=== PATIENT | female | born 1970 | race Caucasian/White ===

== ENCOUNTER 2022-06-23 09:17 | Day surgery (SDC) | payer MEDICAID, SELFPAY ==
[2022-06-17 09:28] VITALS: BMI 34.4
--- NOTE | 2022-06-22 08:04 | HO.ANESPROP2 ---
Documented by User: Basia Dutta NP 06/22/22 08:04 HPI - Anesthesia Eval Consult details Narrative: 51yo F for Colonoscopy [facility] Past Medical History Medical History Hypertension Hypothyroidism Surgical History Surgical History (Updated 06/17/22 @ 09:27 by Dunia Randall, RN) Hx of appendectomy Social History Social History Patient Tobacco Use Status: Never used Tobacco Use of substances other than those prescribed or required for medical reasons: No Are you DNR?: No Advance Directives: No Advance Directives Information Provided: Yes Meds Allergies Allergy/AdvReac Type Severity Reaction Status Date / Time No Known Allergies Allergy Unverified 07/24/20 14:52 [No Known Allergies*] Home Medications Medication Instructions Recorded Confirmed Last Taken Type hydrochlorothiazide 12.5 mg tablet 12.5 mg PO DAILY 06/17/22 06/17/22 06/23/22 History ibuprofen 800 mg tablet 800 mg PO Q8H PRN Pain 06/17/22 06/17/22 Unknown History levothyroxine 25 mcg tablet 25 mcg PO DAILY 06/17/22 06/17/22 Unknown History Exam Exam Date and Time: June 22, 2022 0804 Height,Weight and Vital Signs: Height 5 ft 1 in Weight 82.554 kg Assessment and Plan Assessment Anesthesia Assessment: Chart Reviewed Documented by User: Jose Manuel Sanchez MD 06/23/22 11:02 [facility] Past Medical History Medical History Hypertension Hypothyroidism Family History Family history of problems with anesthesia: No Surgical History Surgical History (Updated 06/17/22 @ 09:27 by Dunia Randall RN) Hx of appendectomy History of Problems with Anesthesia: No Social History Social History Patient Tobacco Use Status: Never used Tobacco Use of substances other than those prescribed or required for medical reasons: No Are you DNR?: No Advance Directives: No Advance Directives Information Provided: Yes Meds Allergies Allergy/AdvReac Type Severity Reaction Status Date / Time No Known Allergies Allergy Unverified 07/24/20 14:52 [No Known Allergies*] Home Medications Medication Instructions Recorded Confirmed Last Taken Type hydrochlorothiazide 12.5 mg tablet 12.5 mg PO DAILY 06/17/22 06/17/22 06/23/22 History ibuprofen 800 mg tablet 800 mg PO Q8H PRN Pain 06/17/22 06/17/22 Unknown History levothyroxine 25 mcg tablet 25 mcg PO DAILY 06/17/22 06/17/22 Unknown History Exam Airway Mallampati Class: III TM Dist: >3cm Neck ROM: Full Denture: Upper and Lower Heart: rrr Lungs: clear Assessment and Plan Final Anesthetic Review Family History of Problems with Anesthesia: No History of Problems with Anesthesia: No NPO: Yes ASA Class: II Final Preanesthetic Review: No Changes in Pt Med Stat, Meds/Allgs Chart Reviewed, Consent Obtained/Reviewed and Anes Risks/Benef Reviewed Patient Risk: Low Procedure Risk: Low Anesthetic Plan Anesthetic Plan: MAC: Disposition: Standard PACU
[2022-06-23 10:10] VITALS: BP 155/89; PULSE 48; RESP 18; TEMP 36.1; O2SAT 100
--- NOTE | 2022-06-23 11:46 | PM.OP ---
Brief Operative Note Date of Service: 06/23/22 Pre-op diagnosis: Screening Post-op diagnosis: other (Diverticulosis) Procedure: Colonoscopy to the cecum Surgeon: Shubham Murillo Anesthesia: MAC Was an Product Info Specialist used for this Procedure?: No Estimated blood loss (mL): 0 Pathology: none sent Condition: stable Disposition: PACU
[2022-06-23 11:48] VITALS: BP 106/57; PULSE 49; RESP 16; TEMP 36.4; O2SAT 96
[2022-06-23 12:01] VITALS: BP 114/61; PULSE 42; RESP 16; O2SAT 98
[2022-06-23 12:15] VITALS: BP 123/74; PULSE 50; RESP 16; O2SAT 98
[2022-06-23 12:30] VITALS: BP 152/96; PULSE 51; RESP 16; TEMP 36.4; O2SAT 98
--- NOTE | 2022-06-24 00:19 | OP_ITS ---
SURGEON: Shubham Murillo MD INDICATIONS: The patient presents for evaluation of colorectal cancer screening and family history of colon cancer. Full consent obtained from her for this, including risks of bleeding and perforation. PREOPERATIVE DIAGNOSIS: POSTOPERATIVE DIAGNOSIS: PROCEDURE PERFORMED: Colonoscopy to cecum. ESTIMATED BLOOD LOSS: COMPLICATIONS: ANESTHESIA: Monitored anesthesia care. ASSISTANTS: SPECIMENS: PREOPERATIVE DIAGNOSES: Colorectal cancer screening and family history of colon cancer. POSTOPERATIVE DIAGNOSES: Colorectal cancer screening and family history of colon cancer, mild diverticulosis and small internal hemorrhoids. DESCRIPTION OF PROCEDURE: The patient was placed in the left lateral decubitus position. The digital rectal exam revealed no abnormalities. The Olympus video pediatric colonoscope was entered into the rectum and advanced easily to the cecum. Once in the cecum, I did identify normal-appearing cecal pouch with appendiceal orifice and a normal-appearing ileocecal valve. The entire cecum and ileocecal valve appeared normal. The scope was then slowly withdrawn assessing all mucosal surfaces carefully. Preparation was excellent. I did not visualize any sign of polyps, colitis, nor angiodysplasia. There was a mild amount of sigmoid diverticulosis. In the rectum, scope was retroflexed visualizing internal hemorrhoids, but no other pathology. The rectal mucosa appeared normal. The scope was straightened and withdrawn from the patient. She tolerated the procedure well and was returned to the recovery area in stable condition. IMPRESSION: 1. Mild sigmoid diverticulosis. 2. Internal hemorrhoids. PLAN: Given her family history, I would recommend a followup colonoscopy in 5 years for further screening. She will otherwise see me on a p.r.n. basis. MD SRIDEVI Cruz/ILYAL / [phone]
== END 2022-06-23 13:32 | disposition home or self-care (01) ==
PROVIDERS: Visit Provider Internal Medicine
PROC: 0DJD8ZZ Inspection of Lower Intestinal Tract, Via Natural or Artificial Opening Endoscopic (ICD-10-PCS; CPT 45378; principal; 2022-06-23 10:40)
DX: Z12.11 Encounter for screening for malignant neoplasm of colon (principal); Z80.0 Family history of malignant neoplasm of digestive organs; K57.30 Diverticulosis of large intestine without perforation or abscess without bleeding; K64.8 Other hemorrhoids; I10 Essential (primary) hypertension; E03.9 Hypothyroidism, unspecified; Z79.899 Other long term (current) drug therapy
CPT/HCPCS: 45378

== ENCOUNTER 2022-12-31 02:05 | Emergency (ER) | payer MEDICAID, SELFPAY ==
[2022-12-31 03:03] VITALS: BP 160/90; PULSE 72; RESP 16; TEMP 37; O2SAT 98; BMI 33.0
[2022-12-31 05:54] VITALS: BP 165/93; PULSE 54; RESP 20; TEMP 36.6; O2SAT 97
--- NOTE | 2022-12-31 06:39 | ED.EXTPRO ---
HPI - Extremity Problem General Chief complaint: Extremity Injury, Upper Stated complaint: R thumb laceration Time Seen by Provider: 12/31/22 06:39 Source: patient Mode of arrival: ambulatory Limitations: no limitations History of Present Illness HPI Narrative: 52 year old female cut her finger opening a can last night around 2000 hours has been in the ED for 4 hours it is now 0630 the next day. Tetanus is uptodate. She has history of htn, hypothyroidism, It is still bleeding at this time. MD Complaint: extremity pain Related Data Home Medications Medication Instructions Recorded Confirmed hydrochlorothiazide 12.5 mg tablet 12.5 mg PO DAILY 06/17/22 06/17/22 ibuprofen 800 mg tablet 800 mg PO Q8H PRN Pain 06/17/22 06/17/22 levothyroxine 25 mcg tablet 25 mcg PO DAILY 06/17/22 06/17/22 Allergies Allergy/AdvReac Type Severity Reaction Status Date / Time No Known Allergies Allergy Unverified 07/24/20 14:52 [No Known Allergies*] Review of Systems Review of Systems: Review of systems: General: Patient denies any fever chills recent illness or falls Musculoskeletal: Denies back pain or body aches or other injuries HEENT: denies headache, runny nose, ear pain Respiratory: denies shortness of breath, cough Cardiovascular: no chest pain or palpitations : denies dysuria, frequency Abdomen: no nausea vomiting denies abdominal pain Extremities: no swelling, no pain Skin: no diaphoresis Yes all other systems are reviewed and are negative PMFSH Past Medical History Medical History Hypertension Hypothyroidism Surgical History (Updated 06/17/22 @ 09:27 by Dunia Randall RN) Hx of appendectomy Social History Social History Alcohol intake: never Patient Tobacco Use Status: Never used Tobacco Smoked in Last 30 Days: No Use of substances other than those prescribed or required for medical reasons: No Advance Directives: No Advance Directives Information Provided: Yes Patient : No Physical Exam Vital Signs: Vital Signs: Last Vital Signs Temp 97.8 F 12/31/22 05:54 Pulse 54 12/31/22 05:54 Resp 20 12/31/22 05:54 BP 165/93 H 12/31/22 05:54 Pulse Ox 97 12/31/22 05:54 O2 Del Method 12/31/22 05:54 BMI result Body Mass Index 33.0 General: Well-appearing well-nourished in no signs of distress HEENT: Normocephalic atraumatic Neck: No signs of JVD, no masses no tenderness or lymphadenopathy Cardiovascular: Regular rate and rhythm Respiratory: Clear to auscultation bilaterally Abdomen: Soft nontender no masses Extremities: Normal pedal pulses no signs of edema Skin: Laceration to thumb at the base of the thumb palmar aspect Dry warm no rashes Back: No tenderness full ROM Medications Administered Discontinued Medications Generic Name Dose Route Start Last Admin Trade Name Freq PRN Reason Stop Dose Admin Diphtheria/Tetanus/Acell Pertussis 0.5 ml 12/31/22 06:52 12/31/22 07:33 Diphth,Pertus(Acell),Tet Adult 0.5 Ml Syringe IM 12/31/22 06:53 0.5 ml .ONCE ONE Administration Lidocaine HCl 20 ml 12/31/22 06:53 12/31/22 07:38 Lidocaine Hcl 1 % 20 Ml Vial SUBCUT 12/31/22 06:54 Not Given ONCE ONE Medical Decision Making Medical Decision Making MDM Narrative: 3 cm laceration tetanus not up to date. Differential Diagnosis Differential Diagnoses: The differential diagnosis associated with the presentation includes Procedures Laceration Laceration 1: Site: hand Side (If applicable): right Size (cm): 4 Description: linear and clean Depth: simple, single layer Local Anesthetic: lidocaine 1% Amount of anesthesia used (mL): 5 Pre-repair: wound explored and irrigated extensively Skin layer closed with: nylon Size (cm): 4-0 Number of sutures: 6 Technique: simple, interrupted Discharge Plan Discharge Clinical Impression: Laceration of right thumb Patient Disposition: Home, Self-Care Instructions: Laceration (ED), Finger Laceration (ED) Additional Instructions: Please call follow-up with your doctor. You need to have your sutures removed in 5-7 days. If he notices any redness streaking or concerns for infection please return to the emergency department. Prescriptions: No Action ibuprofen 800 mg Tablet 800 mg PO Q8H PRN (Reason: Pain) levothyroxine 25 mcg Tablet 25 mcg PO DAILY hydrochlorothiazide 12.5 mg Tablet 12.5 mg PO DAILY Stand Alone Forms: Work/School Release
--- NOTE | 2022-12-31 06:41 | PC.NURSE ---
Pt A&Ox4, reports throbbing pain to R hand thumb r/t cutting thumb while opening can of green beans. Dressing intact, bleeding controlled, Pt able to move all fingers and feel touch.
[2022-12-31] MEDS: Diphth,Pertus(ACell),Tet Adult 0.5 ML SYRINGE IM (07:33)
--- NOTE | 2022-12-31 08:33 | PC.NURSE ---
Bacitracin not loaded in ED pyxis, instruction provided to pt
== END 2022-12-31 08:32 | disposition home or self-care (01) ==
PROVIDERS: Emergency Provider Student in an Organized Health Care Education/Training Program; PCP Internal Medicine
DX: S61.011A Laceration without foreign body of right thumb without damage to nail, initial encounter (principal); S60.311A Abrasion of right thumb, initial encounter; W45.8XXA Other foreign body or object entering through skin, initial encounter; Y93.9 Activity, unspecified; Y92.9 Unspecified place or not applicable; Y99.9 Unspecified external cause status; Z79.899 Other long term (current) drug therapy; Z23 Encounter for immunization
CPT/HCPCS: 12042; 90471; 90715; 99284

== ENCOUNTER 2023-01-07 15:13 | Emergency (ER) | payer MEDICAID, SELFPAY ==
[2023-01-07 15:30] VITALS: BP 167/108; PULSE 79; RESP 18; TEMP 36.4; O2SAT 99; BMI 33.6
--- NOTE | 2023-01-07 15:31 | ED.GENADULT ---
HPI - General Adult General Chief complaint: Skin/Abscess/Foreign Body Stated complaint: Suture removal Time Seen by Provider: 01/07/23 15:28 Source: patient Mode of arrival: ambulatory Limitations: no limitations History of Present Illness HPI narrative: Patient is a 52 year old assigned female at with no reported medical history presenting to the emergency department today for suture removal. Patient states that on 12/31 she was seen here and had 6 sutures placed in her right thumb. Patient denies any drainage / discharge from the site or any surrounding redness. Patient denies any dizziness, lightheadedness, abdominal pain, nausea, vomiting, fever, chills, blurry vision, double vision, loss of vision, chest pain, difficulty breathing, shortness of breath, back pain, night sweats, pain with urination, increased urinary frequency, increased urinary urgency, blood in her urine or stool, syncope or a near syncopal episode, bowel incontinence, bladder incontinence, bowel retention, bladder retention, or any other complaints at this time. Relieving factors: none Exacerbating factors: none Associated symptoms: denies other symptoms Treatments prior to arrival: none Related Data Home Medications Medication Instructions Recorded Confirmed hydrochlorothiazide 12.5 mg tablet 12.5 mg PO DAILY 06/17/22 06/17/22 ibuprofen 800 mg tablet 800 mg PO Q8H PRN Pain 06/17/22 06/17/22 levothyroxine 25 mcg tablet 25 mcg PO DAILY 06/17/22 06/17/22 Allergies Allergy/AdvReac Type Severity Reaction Status Date / Time No Known Allergies Allergy Unverified 07/24/20 14:52 [No Known Allergies*] Review of Systems Constitutional: Constitutional: Reports no additional constitutional complaints, Denies chills, Denies fever(s) and Denies night sweats Eyes: Eyes: Reports no additional eye complaints, Denies blurry vision, Denies change in vision, Denies diplopia, Denies eye discharge, Denies loss of vision and Denies eye pain ENT: Denies dizziness Cardiovascular: Cardiovascular: Reports no additional cardiovascular complaints, Denies chest pain, Denies lightheadedness, Denies Loss of Consciousness and Denies dyspnea Respiratory: Respiratory: Reports no additional respiratory complaints and Denies dyspnea Gastrointestinal: Gastrointestinal: Reports no additional gastrointestinal complaints, Denies abdominal pain, Denies melena, Denies hematochezia, Denies change in bowel habits and Denies change in stool character Genitourinary: Genitourinary: Denies hematuria, Denies urinary frequency, Denies dysuria, Denies urinary incontinence, Denies urinary hesitancy and Denies urinary urgency Musculoskeletal: Musculoskeletal: Reports no additional musculoskeletal complaints, Denies numbness and Denies tingling Integumentary/Breasts: Comments: 6 nylon sutures in placed in the palmar aspect of the right thumb Neurologic: Denies dizziness, Denies loss of vision, Denies numbness and Denies tingling Psychiatric: Psychiatric: Reports no additional psychiatric complaints Endocrine: Endocrine: Reports no additional endocrine complaints Hematologic/Lymphatic: Hematologic/Lymphatic: Reports no additional hematologic/lymphatic complaints Allergic/Immunologic: Allergic/Immunologic: Reports no additional allergic/immunologic complaints [facility] Past Medical History Attestation statement: The following information was validated with the patient. Source: old records reviewed and nursing notes reviewed Medical History Hypertension Hypothyroidism Surgical History Hx of appendectomy Social History Social History Alcohol intake: never Patient Tobacco Use Status: Never used Tobacco Smoked in Last 30 Days: No Use of substances other than those prescribed or required for medical reasons: No Any prior treatment program specific to substance use: No Advance Directives: No Advance Directives Information Provided: No Patient : No Physical Exam ED Vital Signs: Vital Signs - 24 hr 01/07/23 15:30 Temperature 97.6 F Pulse Rate 79 Respiratory Rate 18 Blood Pressure 167/108 H Pulse Oximetry 99 Oxygen Delivery Method Room Air BMI result Body Mass Index 33.6 Const General: cooperative, no acute distress, alert and awake Nutritional Appearance: well nourished Orientation/consciousness: patient oriented x3 Limitations: no limitations HENMT Head: Yes normal to inspection and Yes atraumatic Ears: hearing grossly normal bilaterally and external ears normal General nose exam: Normal external nose present, no nasal discharge noted and no epistaxis Face and sinus: Yes normal facial exam, No abrasion and No laceration Mouth: Normal oral and palatal mucosa present, no drooling and no muffled voice Eyes General: appearance normal, both eyes and all related structures Periorbital: periorbital findings normal Eyelids: Yes eyelids normal Conjunctivae: conjunctivae normal Pupils: Equal, round and reactive pupils present EOM: EOMs intact bilaterally Neck Neck: Yes normal visual inspection, Yes full ROM and Yes no lymphadenopathy Chest Chest palpation & inspection: normal inspection of the chest Resp Effort & Inspection: normal respiratory effort and able to speak in complete sentences Auscultation: clear to auscultation bilaterally Cardio Rate: regular rate Rhythm: regular rhythm GI Inspection: Yes normal to inspection Skin Other: 6 sutures present in the right palmar thumb, no discharge, no surrounding erythema, wound is well healed Neuro General: patient oriented x3 and moves all extremities Cranial nerves: Yes Equal, round and reactive pupils present Cognition (Neuro): normal cognition Motor exam (neuro): 5/5 motor strength present throughout Sensory Exam: Normal double simultaneous stimulation for sensation Coordination: [id number] test normal Extrem General: Yes normal to inspection, Yes full ROM and Yes capillary refill normal Psych Appearance: grossly normal Mental Status: mental status grossly normal Affect: normal affect Attitude: cooperative Thought process: Normal thought process present Thought content: Normal thought content present Insight: Good insight present (Psych) Procedures Procedure Narrative Procedure Narrative: 6 nylon sutures removed from the right palmar thumb without incident. Medical Decision Making Medical Decision Making MDM Narrative: Patient is a 52 year old assigned female at with no reported medical history presenting to the emergency department today for suture removal. Patient's physical exam showed a well healed wound to the right palmar thumb with [address] Sutures were removed, per procedure note, without incident. I explained my physical exam findings to the patient. I answered all questions asked by the patient. I stressed the importance of the patient following up with her primary care provider. I stressed the importance of the patient returning to the emergency department immediately if she were to develop any dizziness, shortness of breath, difficulty breathing, chest pain, blurry vision, loss of vision, nausea, vomiting, abdominal pain, fever, chills, back pain, or any other complaints. Patient verbalized agreement and understanding with this treatment plan and discharge. Differential Diagnosis Differential Diagnoses: The differential diagnosis associated with the presentation includes suture removal Discharge Plan Discharge Clinical Impression: Encounter for removal of sutures Patient Disposition: Home, Self-Care Instructions: Stitches Removal (ED) Additional Instructions: Follow up with your primary care provider. Return to the emergency department immediately if your symptoms worsen or if you develop any dizziness, shortness of breath, difficulty breathing, chest pain, blurry vision, loss of vision, nausea, vomiting, abdominal pain, fever, chills, back pain, or any other complaints. Prescriptions: No Action ibuprofen 800 mg Tablet 800 mg PO Q8H PRN (Reason: Pain) levothyroxine 25 mcg Tablet 25 mcg PO DAILY hydrochlorothiazide 12.5 mg Tablet 12.5 mg PO DAILY Referrals: Jason Fonseca MD [Primary Care Provider] - Interventions: ED Discharge Assessment Last Done: 01/07/23 15:58 Discharge Date/Time: 01/07/23 15:58 Print Language: [place]ralt[place]
== END 2023-01-07 15:58 | disposition home or self-care (01) ==
LOC: HO.ED 15:55
PROVIDERS: Emergency Provider Emergency Medicine Emergency Medical Services; PCP Internal Medicine
DX: Z48.02 Encounter for removal of sutures (principal)
CPT/HCPCS: 99284

== ENCOUNTER 2023-03-24 10:19 | Outpatient (REF) | payer MEDICAID, SELFPAY ==
--- NOTE | ~2023-03-24 | XR_ITS ---
EXAMINATION: XR KNEE STANDING CLINICAL INFORMATION: Pain COMPARISON: Previous right knee x-ray from 2016 and left knee x-ray from 2006 TECHNIQUE: AP and lateral bilateral standing view and sunrise view of both knees was obtained. FINDINGS: Right: Bone alignment is normal. No fracture or dislocation. There are small osteophytes at the medial femoral tibial and patellofemoral joints. There is subchondral lucency in the patella seen on the lateral view. There is a small to moderate joint effusion. Left: Bone alignment is normal. No fracture or dislocation. Mild arthritis at the medial femoral tibial and patellofemoral joints with small osteophytes. Subchondral lucency in the patella seen on the lateral view. No joint effusion. 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 Subchondral lucency in the patella bilaterally, right greater than left. Right knee joint effusion.
== END 2023-03-24 10:20 | disposition home or self-care (01) ==
LOC: HO.HHCX 10:19
PROVIDERS: Visit Provider Internal Medicine
DX: M25.561 Pain in right knee (principal); M25.562 Pain in left knee
CPT/HCPCS: 73565

== ENCOUNTER 2023-04-26 10:33 | Outpatient (REF) | payer MEDICAID, SELFPAY ==
--- NOTE | ~2023-04-26 | US_ITS ---
EXAMINATION: US THYROID CLINICAL INFORMATION: Screening, hypothyroidism. COMPARISON: None available. TECHNIQUE: Linear transducer grayscale and color Doppler examination with attention to the region of the thyroid. FINDINGS: SIZE: Measurements of the thyroid lobes and nodules are given in sagittal, anteroposterior and transverse dimensions respectively. Right Thyroid Lobe: 3.6 x 1.1 x 1.5 cm, volume 3.1 mL. Parenchyma: The gland echotexture is homogeneous. Thyroid vascularity is normal. Left Thyroid Lobe: 3.0 x 0.7 x 1.1 cm, volume 1.2 mL. Parenchyma: The gland echotexture is homogeneous. Thyroid vascularity is normal. Isthmus: 0.3 cm in maximum AP dimension. No focal thyroid nodule is seen. NODES: No lymphadenopathy is seen in the tissue surrounding the thyroid gland. There is single echogenic structure seen at the lower pole of left lobe, measured 0.6 x 0.3 x 0.5 cm possibly parathyroid nodule. US/US thyroid IMPRESSION: Questionable left parathyroid adenoma. No abnormal findings in the thyroid gland ACR TI-RADS RECOMMENDATION REFERENCE: Ultrasound-guided fine-needle aspiration, followup ultrasound, no further follow up. * TR1 (0 point) and TR2 (2 points): No FNA or follow up. * TR3 (3 points): FNA if more than or equal to 2.5 cm in maximum dimension, followup ultrasound in 1, 3 and 5 years if 1.5 to 2.4 cm in maximum dimension. * TR4 (4-6 points): FNA if more than or equal to 1.5 cm in maximum dimension, followup ultrasound in 1, 2, 3 and 5 years if 1 to 1.4 cm in maximum dimension. * TR5 (more than or equal to 7 points): FNA if more than or equal to 1 cm in maximum dimension, followup ultrasound every year for 5 years if 0.5 to 0.9 cm in maximum dimension. * TR3, TR4 or TR5 nodules that are below the size threshold for followup receive no follow up.
--- NOTE | ~2023-04-26 | MM_ITS ---
EXAMINATION: MM SCREENING DIGITAL BREAST TOMOSYNTHESIS, BILATERAL CLINICAL INFORMATION: Screening. Asymptomatic. The lifetime risk of breast cancer based on the Tyrer-Cuzick Model is 17.5%. COMPARISON: Mammography: July 23, 2015 and studies dating back to June 08, 2011 TECHNIQUE: Digital breast tomosynthesis is performed in both the craniocaudal and mediolateral oblique views along with computer-aided detection (CAD). Synthesized 2D images are generated from the tomosynthesis. FINDINGS: There are scattered areas of fibroglandular density (ACR BI-RADS breast composition Category b). There are no significant masses, abnormal calcifications, or other abnormalities. MM/MM tomosynthesis screening BI IMPRESSION: No significant changes from prior exam. ASSESSMENT: BI-RADS 1: Negative RECOMMENDATION: Routine annual mammography screening. This patient's information was entered into a reminder system with a target due date for their next mammogram.
== END 2023-04-26 10:34 | disposition home or self-care (01) ==
LOC: HO.MAMMO 10:33
PROVIDERS: PCP Internal Medicine; Visit Provider Internal Medicine
DX: Z12.31 Encounter for screening mammogram for malignant neoplasm of breast (principal); E03.9 Hypothyroidism, unspecified
CPT/HCPCS: 76536; 77063; 77067

== ENCOUNTER 2024-10-02 10:11 | Outpatient (REF) | payer MEDICAID, SELFPAY ==
[2024-10-02 12:30] LABS: Alanine Aminotransferase 25 U/L (0-31); Albumin Level 4.2 g/dL (3.5-5.0); Alkaline Phosphatase 60 U/L (39-117); Anion Gap 11 (12-20); Aspartate Amino Transferase 27 U/L (5-31); Bilirubin Total 0.5 mg/dL (0.0-1.0); Blood Urea Nitrogen 15 mg/dL (9-16); Calcium 9.2 mg/dL (8.4-10.2); Carbon Dioxide 28 mmol/L (22-29); Chloride 102 mmol/L (96-108); Cholesterol 161 mg/dL (<200); Estimated Glomerular Filt Rate > 60; Glucose Random 101 mg/dL (60-115); HDL Cholesterol 59 mg/dL (>40); LDL Cholesterol Calculated 93 mg/dL (<100); Potassium 3.3 mmol/L (3.3-5.1); Sodium 138 mmol/L (135-145); Total Protein 7.7 g/dL (6.5-8.0); Triglycerides 48 mg/dL (<150)
[2024-10-02 12:47] LABS: TSH reflex Free T4 2.27 uIU/mL (0.32-4.0); Vitamin D 25-OH Total 22.7 ng/mL (>30)
[2024-10-02 14:13] LABS: Reflex LDLD? No
== END 2024-10-02 10:12 | disposition home or self-care (01) ==
LOC: HO.HHCL 10:11
PROVIDERS: Visit Provider Internal Medicine
DX: I10 Essential (primary) hypertension (principal); E03.9 Hypothyroidism, unspecified; E66.811 Obesity, class 1; E66.09 Other obesity due to excess calories; Z68.34 Body mass index [BMI] 34.0-34.9, adult
CPT/HCPCS: 36415; 80053; 80061; 82306; 84443

== ENCOUNTER 2025-01-28 10:00 | Outpatient (REF) | payer MEDICAID, SELFPAY ==
[2025-01-28 12:36] LABS: HBS Num1 153.97 mIU/mL (0-7.99); HBc Num1 0.18 S/CO (0.00-0.79); HIV AB/AG Nonreactive (Nonreactive); HIV Num 1 0.08 S/CO (0.00-0.99); Hepatitis A Antibody IgM 0.17 Index (0-0.79); Hepatitis B Core Antibody Nonreactive (Nonreactive); Hepatitis B Surface Antigen Negative (Negative); Syphilis Screen Nonreactive (Nonreactive); ~HepC Num1 0.14 S/CO (0.00-0.79); ~Hepatitis A Antibody IgM Nonreactive (Nonreactive); ~Hepatitis B Surface Antibody REACTIVE (Nonreactive); ~Hepatitis C Antibody Nonreactive (Nonreactive)
== END 2025-01-28 10:01 | disposition home or self-care (01) ==
LOC: HO.HHCL 10:00
PROVIDERS: Visit Provider Internal Medicine
DX: Z00.00 Encounter for general adult medical examination without abnormal findings (principal)
CPT/HCPCS: 36415; 86481; 86704; 86706; 86709; 86780; 86803; 87340; 87389

== ENCOUNTER 2025-07-01 14:36 | Outpatient (REF) | payer MEDICAID, SELFPAY ==
--- NOTE | ~2025-07-01 | XR_ITS ---
EXAMINATION: XR KNEE, RIGHT CLINICAL INFORMATION: pain COMPARISON: 03/24/2023. TECHNIQUE: Four views of the right knee. FINDINGS: There is no fracture, dislocation, or suspicious bone lesion. There is normal alignment. Mild to moderate tricompartmental arthritis present with small marginal osteophytic spurs. There is normal patellar alignment. There is no patellar tilt. There is a large suprapatellar joint effusion. There is no soft tissue abnormality. XR/XR knee RT 4V IMPRESSION: 1. Mild to moderate tricompartmental arthritis. 2. Suprapatellar joint effusion. Electronically signed by: Maikol Otero MD 07/01/2025 03:53 PM EDT
--- OUTSIDE RECORDS SUMMARY | 2025-07-01 14:00 | XMS_ITS | Encounter Summary ---
Author Organization [employer] Address [address] [facility] 7t [place] [address] Care Team Providers Care Assistant Passenger Locomotive Engineer Name Role Phone Mary House PharmD Unavailable [phone] Shahana Hernandez MD Primary Care Provider + Encounter Details Date Type Department Care Team (Late st Contact Info) Description 07/01/2025 2:00 PM EDT Office Visit [facility] [address] [place] [address] Yaa Nolan MD [address] [place] [address] Acute pain of right knee Social History Tobacco Use Types Packs/Day Years Used Date Smoking Tobacco: Never Passive Smoke Exposure: Never Smokeless Tobacco: Never Alcohol Use Standard Drinks/Week Comments Never 0 (1 standard drink = 0.6 oz pur e alcohol) Depression Answer Date Recorded Patient Health Questionnaire-9 Score 5 03/22/2023 Housing Stability Answer Date Recorded What is your housing situation today? I have rikkiadriana kraft 10/02/[address] you li ve. Do you have problems with any of the following? None of the above 10/02/2024 Food Insecurity Answer Date Recorded Within the past 12 months, y ou worried that your food would run out before you got money to buy more: Never True 10/02/2024 Within the past 12 months,th e food you bought just didn't last and you didn't have enough money to get more: Never True Transportation Answer Date Recorded In the past 12 months, has l ack of transportation kept you from medical appts, meetings, work or from getting things needed for daily living? No 10/02/2024 Utilities Answer Date Recorded In the past 12 months, has t he electric, gas, oil or water company threatened to shut off services in your home? No 10/02/2024 Depression Answer Date Recorded Patient Health Questionnaire-2 Score 0 10/02/2024 Internet Access Answer Date Recorded Internet Access Q1 Yes 01/10/2025 Internet Access Q2 I do not want or need it 04/2025 Comments No Sex and Gender Information Value Date Recorded Sex Assigned at Female 09/06/2022 10:16 AM EDT Legal Sex Female 10:16 AM EDT Gender Identity Female 09/06/2022 10:16 AM EDT Sexual Orientation Straight 09/06/2022 10 :16 AM EDT documented as of this encounter Last Filed Vital Signs Vital Sign Reading Time Taken Comments Blood Pressure 130/82 07/01/2025 2:12 PM EDT Pulse 64 07/01/2025 2:12 PM EDT Temperature 36.6 C (97.8 F) 07/01/2025 2:12 PM EDT Respiratory Rate 16 07/01/2025 2:12 PM EDT Oxygen Saturation - - Inhaled Oxygen Concentration - - Weight 84.4 kg (186 lb) 07/01/2025 2:12 PM EDT Height 154.9 cm (5' 1 ) 07/01/2025 2:12 PM EDT Body Mass Index 35.14 07/01/2025 2:12 PM EDT documented in this encounter Progress Notes * Yaa Traore MD - 07/01/2025 2:00 PM EDT SUBJECTIVE: Vania Perez is a 54 y.o. year old female who presents for acute visit . 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 Lives on a first floor apartment with a room mate Has 2 adult children who are independent Problem List[1] Essential hypertension Hypothyroidism Preventative health care Class 2 severe obesity due to excess calories with serious comorbidity and body mass index (BMI) of37.0 to 37.9 in adult ([facility] Diverticulosis of colon Chronic pain of both knees Periodontal disease Dental caries Class 1 obesity due to excess calories with serious comorbidity and body mass index (BMI) of 34.0 to 34.9 in adult Acute non intractable tension-type headache Vitamin D deficiency Varicose veins of both lower extremities with inflammation Exercise counseling Acute pain of right knee Family History[2] Review of Systems Constitutional: Negative. HENT: Negative. Respiratory: Negative. Cardiovascular: Negative. Musculoskeletal: Positive for arthralgias and joint swelling. OBJECTIVE: Vitals: 07/01/25 1412 BP: 130/82 BP Location: Right arm Patient Position: Sitting BP Cuff Size: Adult Pulse: 64 Resp: 16 Temp: 97.8 ??F (36.6 ??C) TempSrc: Oral Weight: 186 lb (84.4 kg) Height: 5' 1 (1.549 m) Physical Exam Constitutional: Appearance: Normal appearance. Cardiovascular: Rate and Rhythm: Normal rate and regular rhythm. Pulmonary: Effort: Pulmonary effort is normal. Breath sounds: Normal breath sounds. Abdominal: General: Abdomen is flat. Palpations: Abdomen is soft. Musculoskeletal: General: Tenderness present. Right knee: Swelling present. Decreased range of motion. Tenderness present. Right lower leg: No edema. Left lower leg: No edema. Neurological: Mental Status: She is alert. Follow Up: No follow-ups on file. Medications Ordered Prior to Encounter[3] Problem List Items Addressed This Visit Acute pain of right knee Elevate knee apply ice and rest I will prescribe acetaminophen to be taken as needed I will order an x-ray and contact patient with results Relevant Medications acetaminophen (Tylenol Extra Strength) 500 MG tablet Other Relevant Orders XR Knee 4+ Views Right [1] Patient Active Problem List Diagnosis Essential hypertension Hypothyroidism Preventative health care Class 2 severe obesity due to excess calories with serious comorbidity and body mass index (BMI) of37.0 to 37.9 in adult ([facility]) Diverticulosis of colon Chronic pain of both knees Periodontal disease Dental caries Class 1 obesity due to excess calories with serious comorbidity and body mass index (BMI) of 34.0 to 34.9 in adult Acute non intractable tension-type headache Vitamin D deficiency Varicose veins of both lower extremities with inflammation Exercise counseling Acute pain of right knee [2] No family history on file. [3] Current Outpatient Medications on File Prior to Visit Medication Sig Dispense Refill Blood Pressure Monitoring (Blood Pressure Cuff) [facility] Use daily as prescribed 1 each 0 ergocalciferol (Vitamin D2) 1.25 MG (05701 UT) capsule TAKE 1 CAPSULE BY MOUTH ONE TIME PER WEEK 12capsule 0 hydroCHLOROthiazide (Microzide) 12.5 MG capsule TAKE 1 CAPSULE BY MOUTH EVERY DAY IN THE MORNING 90capsule 1 levothyroxine (Synthroid, Levoxyl) 25 MCG tablet TAKE 1 TABLET BY MOUTH EVERY DAY IN THE MORNING ONEMPTY STOMACH 90 tablet 1 meloxicam (Mobic) 15 MG tablet TAKE 1 TABLET BY MOUTH EVERY MORNING 30 tablet 0 No current facility-administered medications on file prior to visit. documented in this encounter Miscellaneous Notes * Assessment & Plan Note - Yaa Traore MD - 07/01/2025 3:07 PM EDT Associated Problem(s): Acute pain of right knee Elevate knee apply ice and rest I will prescribe acetaminophen to be taken as needed I will order an x-ray and contact patient with results documented in this encounter Plan of Treatment Not on file documented as of this encounter Goals Goal Patient Goal Type Associated Problems Recent Progress Patient-Stated? Author Blood Pressure < 140/90 Blood Pressure 130/82( 2:12 PM EDT) No Mary House, PharmD documented as of this encounter Procedures Procedure Name Priority Date/Time Associated Diagnosis Comments XR KNEE 4+ VIEWS RIGHT Routine 07/01/2025 2:00 PM EDT Acute pain of right knee documented in this encounter Results * XR Knee 4+ Views Right (07/01/2025 2:00 PM EDT) Anatomical Region Laterality Modality Lower Extremities, Knee Right Radiogra phic Imaging 07/01/2025 2:00 PM EDT Narrative 07/01/2025 3:56 PM EDT [address] [address] XRay Report Signed Patient: Vania Perez I MR#: [id number] : 1970 Acct:[id number] Age/Sex: 54 / F ADM Date: 07/01/25 Loc: HO.CX Attending Dr: Yaa Traore MD Ordering Physician: Yaa Nolan MD Date of Service: 07/01/25 Procedure(s): XR knee RT 4V Accession Number(s): [id number] cc: Yaa Nolan MD EXAMINATION: XR KNEE, RIGHT CLINICAL INFORMATION: pain COMPARISON: 03/24/2023. TECHNIQUE: Four views of the right knee. FINDINGS: There is no fracture, dislocation, or suspicious bone lesion. There is normal alignment. Mild to moderate tricompartmental arthritis present with small marginal osteophytic spurs. There is normal patellar alignment. There is no patellar tilt. There is a large suprapatellar joint effusion. There is no soft tissue abnormality. XR/XR knee RT 4V IMPRESSION: 1. Mild to moderate tricompartmental arthritis. 2. Suprapatellar joint effusion. Electronically signed by: Maikol Otero MD 07/01/2025 03:53 PM EDT Dictated By: Maikol Otero MD Signed By: <Electronically signed by Maikol Otero MD in OV> 07/01/25 1553 DD/ 1400 TD/TT: 07/01/25 1405 [employer]: Procedure Note Donotuseinterpreter, Image - 07/01/[address] [address] XRay Report Signed Patient: Vania Perez IMR#: [id number] : 1970Acct:[id number] Age/Sex: 54 / FADM Date: 07/01/25 Loc: HO.CX Attending Dr: Yaa Traore MD Ordering Physician: Yaa Nolan MD Date of Service: 07/01/25 Procedure(s): XR knee RT 4V Accession Number(s): [id number] cc: Yaa Nolan MD EXAMINATION: XR KNEE, RIGHT CLINICAL INFORMATION: pain COMPARISON: 03/24/2023. TECHNIQUE: Four views of the right knee. FINDINGS: There is no fracture, dislocation, or suspicious bone lesion. There is normal alignment. Mild to moderate tricompartmental arthritis present with small marginal osteophytic spurs. There is normal patellar alignment. There is no patellar tilt. There is a large suprapatellar joint effusion. There is no soft tissue abnormality. XR/XR knee RT 4V IMPRESSION: 1. Mild to moderate tricompartmental arthritis. 2. Suprapatellar joint effusion. Electronically signed by: Maikol Otero MD 07/01/2025 03:53 PM EDT RP Workstation: [id number] Dictated By: Maikol Otero MD Signed By: <Electronically signed by Maikol Otero MD in OV> 07/01/25 1553 DD/ 1400 TD/TT: 07/01/25 1405 [employer]: Yaa Traore MD IMG XR PROCEDURES Fin al Result documented in this encounter Visit Diagnoses Diagnosis Acute pain of right knee documented in this encounter Additional Health Concerns Assessment Noted Time PHQ-9 Depression Total Score: 5 03/22/20 23 1:56 PM EDT documented as of this encounter Care Teams Assistant Passenger Locomotive Engineer Relationship Specialty Start Date End Date Shahana Hernandez MD [address] [place] [address] PCP - General Internal Medicine 10/02/24 Mary House PharmD [address] [place] [address] Pharmacist Internal Medicine 04/11/23 documented as of this encounter
--- OUTSIDE RECORDS SUMMARY | 2025-07-01 16:19 | XMS_ITS | Encounter Summary ---
Author Organization [employer] Address [address] [facility] 7t [place] [address] Care Team Providers Care Oracle Bpm Consultant Name Role Phone Mary House PharmD Unavailable [phone] Shahana Hernandez MD Primary Care Provider + Reason for Visit * Reason Onset Date Comments Med Refill 05/05/2025 Encounter Details Date Type Department Care Team (Late st Contact Info) Description 05/05/2025 Refill [facility] [address] [place] [address] Jason Cross MD [address] [place] [address] Essential (primary) hypertension; Acquired hypothyroidism Social History Tobacco Use Types Packs/Day Years Used Date Smoking Tobacco: Never Passive Smoke Exposure: Never Smokeless Tobacco: Never Alcohol Use Standard Drinks/Week Comments Never 0 (1 standard drink = 0.6 oz pur e alcohol) Depression Answer Date Recorded Patient Health Questionnaire-9 Score 5 03/22/2023 Housing Stability Answer Date Recorded What is your housing situation today? I have rikki kraft 10/02/[address] you [...] AM EDT documented as of this encounter Plan of Treatment Not on file documented as of this encounter Goals Goal Patient Goal Type Associated Problems Recent Progress Patient-Stated? Author Blood Pressure < 140/90 Blood Pressure 130/82( 025 2:12 PM EDT) No Mary House PharmD documented as of this encounter Visit Diagnoses Diagnosis Essential (primary) hypertension Unspecified essential hypertension Acquired hypothyroidism Unspecified hypothyroidism documented in this encounter Additional Health Concerns Assessment Noted Time PHQ-9 Depression Total Score: 5 03/22/20 23 1:56 PM EDT documented as of this encounter Care Teams Oracle Bpm Consultant Relationship Specialty Start Date End Date Shahana Hernandez MD [address] [place] [address] PCP - General Internal Medicine 10/02/24 Mary House PharmD [address] [place], [place] [phone] Pharmacist Internal Medicine 04/11/23 documented as of this encounter
--- OUTSIDE RECORDS SUMMARY | 2025-07-01 16:19 | XMS_ITS | Encounter Summary ---
Author Organization [employer] Address [address] [facility] 7t [place] [address] Care Team Providers Care Beater And Pulper Feeder Name Role Phone Mary House PharmD Unavailable [phone] Shahana Hernandez MD Primary Care Provider + Reason for Visit * Reason Comments Med Refill Encounter Details Date Type Department Care Team ([facility] st Contact Info) Description 07/01/2025 Refill [facility] [address] [place] [address] Shahana Hernandez MD [address] [place] [address] Social History Tobacco Use Types Packs/Day Years [...] 130/82( 025 2:12 PM EDT) No Mary House, PharmD documented as of this encounter Visit Diagnoses Not on filedocumented in this encounter Additional Health Concerns Assessment Noted Time PHQ-9 Depression Total Score: 5 03/22/20 23 1:56 PM EDT documented as of this encounter Care Teams Beater And Pulper Feeder Relationship Specialty Start Date End Date Shahana Hernandez MD [address] [place] [address] PCP - General Internal Medicine 10/02/24 Mary House, PharmD [address] [place] [address] Pharmacist Internal Medicine 04/11/23 documented as of this encounter
--- OUTSIDE RECORDS SUMMARY | 2025-07-01 16:19 | XMS_ITS | Encounter Summary ---
Author Organization [employer] Address [address] [facility] 7t [place] [address] Care Team Providers Care Indirect Sales Exec Name Role Phone Jason Cross MD Primary Care Provide r Mary House PharmD Unavailable [phone] Shahana Hernandez MD Primary Care Provider + Encounter Details Date Type Department Care Team (Late st Contact Info) Description 02/07/[address] [facility] [address] [place] [address] Sima Spencer LPN Social History Tobacco Use Types Packs/Day Years Used Date Smoking Tobacco: Never Assessed Comments Unknown Sex and Gender Information Value Date Recorded Sex Assigned at Female 09/06/2022 10:16 AM EDT Legal Sex Female 10:16 AM EDT Gender Identity Female 09/06/2022 10:16 AM EDT Sexual Orientation Straight 09/06/2022 10 :16 AM EDT documented as of this encounter Plan of Treatment Not on file documented as of this encounter Visit Diagnoses Not on filedocumented in this encounter Care Teams Indirect Sales Exec Relationship Specialty Start Date End Date Jason Cross MD [address] [place], [place] [phone] PCP - General Internal Medicine 07/28/21 10/01/24 Shahana Hernandez MD [address] [place], [place] [address] PCP - General Internal Medicine 10/02/24 Mary House, MicheleD [address] [place] [address] Pharmacist Internal Medicine 04/11/23 documented as of this encounter
--- OUTSIDE RECORDS SUMMARY | 2025-07-01 16:19 | XMS_ITS | Patient Health Record ---
Author Organization [facility] Address [address] [place] [address] Care Team Providers Care Hand Grinder Name Role Phone Dung Acevedo MD, Jason Primary Care Provide r Shubham Santiago Unavailable [phone] Allergies No Known Allergies Reason For Referral No Information Medications Medication SIG (Take, Route, Frequency, Duration) Notes Start Date End Date Status Ibuprofen 800 MG TAKE 1 TABLET BY MOUTH THREE TIMES DAILY WITH FOOD Oral for 5 Active Chlorhexidine Gluconate 0.12 % RINSE FOR 30 SECONDS WITH A HALF OUNCE (15ml) TWICE DAILY, SPIT OUT -- DO NOT SWALLOW.. USE AFTER MEALS Mouth/Throat for 16 Active Levothyroxine Sodium 25 MCG TAKE 1 TABLE T BY MOUTH EVERY MORNING ON AN EMPTY STOMACH Oral for 30 Active hydroCHLOROthiazide 12.5 MG TAKE 1 TABLE T BY MOUTH EVERY DAY Oral for 30 Active Dulcolax (colon prep) 5 MG take at 3:00 p.m and 7:00p.m. Orally two tablets twice a day for one day for 1 day 04/30/2022 Active MiraLax (colon prep) 17 GM/SCOOP 1 238Gm bottle mixed with Gatorade or Crystal Light Orally begin at 5:00 p.m. the day before the procedure for 1 day 04/30/2022 Active Immunizations Vaccine Route Administration Date Status Comme nts Influenza Unknown 01/21/2022 Administered Social History Tobacco Use: Social History Observation Description Date Details (start date - stop date) Never Smoker NA - NA Tobacco Use/Smoking Question Answer Notes Patient is a nonsmoker Alcohol Screen Question Answer Notes Did you have a drink containing alcohol in the p ast year? No Points 0 Interpretation Negative Section Notes: Nonsmoker; no sig alcohol Problems Problem Type SNOMED Code ICD Code Onset Dates Problem Status W/U Status Risk Notes Problem Encounter for screening for malignant neoplasm of colon (Z12.11) Active confirmed Problem Pre-procedure evaluation check (381792321) Encounter for other preprocedural examination (Z01.818) Active confirmed Problem Family History of Cancer of Colon (Situation) (685285838) Family history of colon cancer (Z80.0) Active confirmed Problem Diverticulosis of colon (963320539) Diverticulosis of colon (K57.30) Active confirmed Plan Of Treatment Future Test Test Name Order Date COLONOSCOPY 04/30/2022 Insurance Providers Payer Name Payer Address Payer Phone Subscriber Number Group Number Insured Name Patient Relationship to Insured Coverage Start Date Coverage End Date MEDICA[employer] OF [employer] [address] [place] [phone] [id number] ARELI HILARIO Self - patient is the insured Medical (General) History Medical History History ICD Code Hypertension Hypothyroidism Denies MS,DM,CVA,Lung disease,renal dise ase Surgical History Surgery Date(Month/Year) Appendectomy 1996
--- OUTSIDE RECORDS SUMMARY | 2025-07-01 16:19 | XMS_ITS | Encounter Summary ---
Author Organization [employer] Address [address] [facility] [address] [place] [address] Care Team Providers Care Project Control Analyst Name Role Phone Mary House PharmD Unavailable [phone] Shahana Hernandez MD Primary Care Provider + Encounter Details Date Type Department Care Team (Latest Contact Info) Description 07/01/2025 Travel Social History Tobacco Use Types Packs/Day Years [...] 025 2:12 PM EDT) No Mary House, Sultana documented as of this encounter Visit Diagnoses Not on filedocumented in this encounter Additional Health Concerns Assessment Noted Time PHQ-9 Depression Total Score: 5 03/22/20 23 1:56 PM EDT documented as of this encounter Care Teams Project Control Analyst Relationship Specialty Start Date End Date Shahana Hernandez MD [address] [place] [address] PCP - General Internal Medicine 10/02/24 Mary House PharmD [address] [place] [address] Pharmacist Internal Medicine 04/11/23 documented as of this encounter
--- OUTSIDE RECORDS SUMMARY | 2025-07-01 16:19 | XMS_ITS | Encounter Summary ---
Author Organization [employer] Address [address] [facility] [address]t [place] [address] Care Team Providers Care Pure Pak Machine Operator Name Role Phone Mary House PharmD Unavailable [phone] Shahana Hernandez MD Primary Care Provider + Reason for Visit * Reason Onset Date Comments Nurse Triage 07/01/2025 Encounter Details Date Type Department Care Team ([facility] st Contact Info) Description 07/01/[address] [facility]INE [address] [place] [address] Shahana Hernandez MD [address] [place] [address] Nurse Triage Social History Tobacco Use Types Packs/Day Years [...] AM EDT documented as of this encounter Miscellaneous Notes * Telephone Encounter - Belinda Burris RN - 07/01/2025 10:55 AM EDT Triage call Pt reports right knee with pain and swelling. Pt reports area is warm to touch. Pt is able to ambulate but, unable to bend the knee. Pt has had chronic pain in both knees. Pt is taking meloxicam each morning. Pt is advised to try ice/heat, tylenol/motrin for pain. Pt agrees with disposition. Pt is advised to come to [facility] today to be seen by provider. Pt is at work at time of call. Insurance is verified as active. Protocol Used: Knee Swelling (Adult) Protocol-Based Disposition: See in Office or Video Visit Today or Tomorrow Video visit not offered Positive Triage Question: * Patient wants to be seen * All higher-acuity triage questions were negative Care Advice Discussed: * Cold Pack for Knee Swelling * Pain Medicines * Reasons To Call Back - Severe pain lasts over 2 hours after pain medicine - Fever occurs - Looks infected (spreading redness, red streak) - You become worse * Telephone Encounter - Kaitlynn Sylvester - 07/01/2025 9:54 AM EDT Symptom: Leg Swelling - Not From Injury Outcome: Schedule an urgent appointment (within 1 hour) or talk to a nurse or provider soon Reason: Leg swelling on one side only The caller accepted this outcome. Contact pt at [phone] documented in this encounter Plan of Treatment [...] documented as of this encounter Care Teams Pure Pak Machine Operator Relationship Specialty Start Date End Date Shahana Hernandez MD [address] [place] [address] PCP - General Internal Medicine 10/02/24 Mary House, PharmD [address] [place] [address] Pharmacist Internal Medicine 04/11/23 documented as of this encounter
--- OUTSIDE RECORDS SUMMARY | 2025-07-01 16:19 | XMS_ITS | Clinical Summary ---
Author Organization [employer] Address [address] [facility] [address] [place] [address] Care Team Providers Care Warehouse Order Filler Name Role Phone Mary House PharmD Unavailable [phone] Shahana Hernandez MD Primary Care Provider + Allergies No known active allergies Medications levothyroxine (Synthroid, Levoxyl) 25 MCG tabletIndications: Acquired hypothyroidism TAKE 1 TABLET BY MOUTH EVERY DAY IN THE MORNING ON EMPTY STOMACH 90 tablet 1 5 Active Blood Pressure Monitoring (Blood Pressure Cuff) misc Use daily as prescribed 1 each 5 Active ergocalciferol (Vitamin D2) 1.25 MG (23590 UT) capsule TAKE 1 CAPSULE BY MOUTH ONE TIME PER WEEK 12 capsule 5 Active meloxicam (Mobic) 15 MG tabletIndications: Chronic pain of both knees TAKE 1 TABLET BY MOUTH EVERY MORNING 30 tablet 5 Active hydroCHLOROthiazid e (Microzide) 12.5 MG capsuleIndications :Essential (primary) hypertension TAKE 1 CAPSULE BY MOUTH EVERY DAY IN THE MORNING 90 capsule 1 5 Active acetaminophen (Tylenol Extra Strength) 500 MG tabletIndications: Acute pain of right knee Take 2 tablets (1,000 mg) by mouth every 8 (eight) hours if needed for moderate pain for up to 10 days. 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 Recommended to decrease soda and sugary beverage consumption, increase protein intake with meals (at least 1 portion of protein with each meal) to assist with satiety, increase dietary fiber Recommended at least 150 min/week of moderate intensity exercise. Wants a referral to dietitian, she will discuss with PCP regarding need or not for medications Assessment & Plan (10/02/2024 12:55 PM EST): Discussed re weight reduction options including exercise, life style modifications, diet and referral to invoicing specialist. Recommended to decrease soda and sugary beverage consumption, increase protein intake with meals (at least 1 portion of protein with each meal) to assist with satiety, increase dietary fiber Recommended at least 150 min/week of moderate intensity exercise. Acute non intractable tension-type headache 09/08 Assessment & Plan (10/02/2024 12:57 PM EST): Take Excedrin Migraine prn headache x 2-3 days, re consult prn. Periodontal disease 08/08/2023 Dental caries 08/08/2023 Preventative health care 03/22/2023 Assessment & Plan (01/28/2025 10:14 AM EDT): Discussed with patient re increase fresh fruit and vegetable intake. Counseled re moderate exercise as tolerated, up to 20min/d Patient feels safe at home. PAP smear is up-to-date, next 1 due 7 Mammogram is up-to-date, next due March 2025, advised to schedule appointment as soon as she receives the reminder letter. Eye exam is up-to-date, next December 2026 CRC screen is up today, next 2031. Normal result. However recall is for 2026, will call GI to verify recall date Lipids/FBS up today, follow-up with PCP on September 2025 Vaccinations are all up-to-date. Dental visit up-to-date, sees dentist as needed as she has complete dentures Assessment & Plan (04/11/2023 3:34 PM EDT): - Shingrix #1 administered today. Assessment & Plan (03/22/2023 1:55 PM EDT): Mammogram: Ordered Pap: 02/15/2022 Colonoscopy: 06/23/2022 Diverticulosis, Hemorrhoids [address] ho due to Fam Hx Class 2 severe obesity due t o excess calories with serious comorbidity and body mass index (BMI) of 37.0 to 37.9 in adult 03/22/2023 Assessment & Plan (03/22/2023 1:40 PM EDT): Patient has been counseled and educated about diet and exercise. Personal goal of weight loss discussedPatient has comorbidity of: HTN Diverticulosis of colon 03/22/2023 Chronic pain of both knees 03/22/2023 Assessment & Plan (10/02/2024 12:56 PM EST): Consistent with OA, XR on 2022 reviewed. Take Meloxicam x 1-2 weeks, and Tylenol prn only. Refer to PT. Assessment & Plan (03/22/2023 1:46 PM EDT): Pt with c/o bilateral knee pain for months. On exam no swelling, No redness, Plan: Plain films both knees, NSAIDS Essential hypertension 03/18/2023 Overview (04/11/2023): Dx with HTN a few months ago and started on hydrochlorothiazide in March. BP readings at home are consistently less than 140/90 Current therapy: - hydrochlorothiazide 12.5mg daily Assessment & Plan (10/02/2024 12:54 PM EST): Controlled. Compliant w/meds Continue Hydrochlorothiazide. Counseled re low salt diet/increase moderate physical activity. Check home BP BIW and prn CP/GODWIN/OFUNTAIN Non smoking patient. Fu in 4-6 months. Assessment & Plan (04/11/2023 3:34 PM EDT): - At goal of less than 140/90 per JNC8 guidelines - BMP is WNL; f/u in 6 months. Assessment & Plan (03/22/2023 1:55 PM EDT): Patient with Hypertension Most recent electrolytes, Bun and Creatinine done on: 01/19/2022 were within normal limits. She is on Hctz 12.5 mg po daily BP controlled Plan: Continue with current regimen patient advised to adhere to a low sodium diet, encouraged about medication compliance, counseled about weight loss. Hypothyroidism 03/18/2023 Assessment & Plan (10/02/2024 12:55 PM EST): On levothyroxine 25 mcg, check TSH and will call back prn to adjust medications. Assessment & Plan (03/22/2023 1:55 PM EDT): TSH elevated, Free T4 normal Previously I recommended a Thyroid U/S, and started her onLevothyroxine 25 mcg po daily Pt was also referred to Endocrinology . She did not go Plan: Repeat TFTs, Order Thyroid US F.u 3 months Encounters Date Type Department Care Team Description 07/01/2025 2:00 PM EDT Office Visit [facility] [address] [place] [address] Yaa Nolan MD Acute pain of right knee 07/01/2025 Travel 07/01/2025 Telephone [facility] [address] [place] [address] Shahana Hernandez MD Nurse Triage 07/01/2025 Refill [facility] [address] [place] [address] Shahana Hernandez MD 06/18/2025 3:15 PM EDT Office Visit [facility] [address] [place] [address] Maria Antonia Bhakta, OD Other disorders of optic nerve, not elsewhere classified, bilateral (Primary Dx) 06/18/2025 Travel 06/11/2025 Travel 05/21/2025 Refill [facility] [address] [place] [address] Shahana Hernandez MD Essential (primary) hypertension 05/05/2025 Refill [facility] [address] [place] [address] Shahana Hernandez MD Chronic pain of both knees 05/05/2025 Refill [facility] [address] [place] [address] Jason Cross MD Essential (primary) hypertension; Acquired hypothyroidism 04/30/2025 Telephone [facility] [address] [place] [address] Shahana Hernandez MD No Show 04/30/2025 Telephone [facility] [address] [place] [address] Shahana Hernandez MD Appointment Request 04/29/2025 Telephone [facility] [address] [place] [address] Shahana Hernandez MD Chart Prep 04/19/2025 Patient Outreach [facility] [address] [place] [address] Shahana Hernandez MD Pre-visit Planning (SDOH screening completed on 01/10/2025) 04/12/2025 Refill [facility] [address] [place] [address] Shahana Hernandez MD 04/12/2025 Refill [facility] [address] [place] [address] Jason Cross MD Essential (primary) hypertension; Acquired hypothyroidism 04/08/2025 Refill [facility] [address] [place] [address] Shahana Hernandez MD 04/05/2025 9:15 AM EDT Office Visit [facility] [address] [place] [address] Maria Antonia Bhakta, BEATRIZ Myopia, bilateral (Primary Dx) 04/05/2025 Travel 04/03/2025 Travel from Last 3 Months Immunizations Immunization Administration Dates Next Due HepB-CpG 06/27/2024,03/26/2024 Influenza Injectable Quadriv alant Preservative Free IIV4 MDCK 09/01/2023 Influenza injectable quadriv alent preservative free 09/20/2022,06/12/2021,2017,2015 Influenza, IIV3, injectable 01/21/2022 Influenza, Injectable, MDCK, preservative free 06/27/2024 Influenza, seasonal, injecta ble, preservative free 09/05/2018 Pfizer Covid-19 Vaccine 12+ 10/02/2024 Tdap 12/31/2022,10/06/2017 Zoster, Recombinant 06/20/2023,04/11/2023 Social History Tobacco Use Types Packs/Day Years Used Date Smoking Tobacco: Never Passive Smoke Exposure: Never Smokeless Tobacco: Never Tobacco Cessation:Counseling Given: Not Answered Alcohol Use Standard Drinks/Week Comments Never 0 [...] Orientation Straight 09/06/2022 10 :16 AM EDT Last Filed Vital Signs Vital Sign Reading Time Taken Comments Blood Pressure 130/82 07/01/2025 2:12 PM EDT Pulse 64 07/01/2025 2:12 PM EDT Temperature 36.6 C (97.8 F) 07/01/2025 2:12 PM EDT Respiratory Rate 16 07/01/2025 2:12 PM EDT Oxygen Saturation 99% 01/28/2025 9:21 AM EDT Inhaled Oxygen Concentration - - Weight 84.4 kg (186 lb) 07/01/2025 2:12 PM EDT Height 154.9 cm (5' 1 ) 07/01/2025 2:12 PM EDT Body Mass Index 35.14 07/01/2025 2:12 PM EDT Plan of Treatment Health Maintenance Due Date Last Done Comments CT Colonography 1971 Dental Prophylaxis 1971 FIT DNA/Cologuard 1971 FIT 1971 FOBT 1970 Sigmoidoscopy 1970 Dental X-Ray: Bitewings 08/02/2020 08/01/2019 Dental X-Ray: Full Mouth 08/02/2022 08/01/2019 Dental Oral Exam 01/14/2024 07/15/2023, 08/01/2019 Mammogram 04/26/2025 04/26/2023 Influenza Vaccine (#1) 2025 , 09/01/2023, 09/20/2022, Additional history exists Depression Screening 10/02/2025 10/02/2024, 03/22/20 SDOH Screening 01/10/2026 01/10/2025 Disability Screening 01/21/2026 01/21/2025 Alcohol/Substance Use Screening 01/28/2026 01/28/2025 Tobacco Screening 01/28/2026 01/28/2025 Cervical Cancer Screening 02/15/2027 HPV/Cotest 02/15/2027 02/15/2022 Pap Smear 02/15/2027 02/15/2022 Colonoscopy 06/23/2027 06/23/2022 Colorectal Cancer Screening 06/23/2027 Lipid Panel 10/02/2029 10/02/2024, 01/19/2022 DTaP/Tdap/Td Vaccines (3 - Td or Tdap) 12/31/2032 12/31/2022, 10/06/2017 Zoster Vaccines Completed 06/20/2023, 04/11/2023 Hepatitis B Vaccines Completed 06/27/2024, 03/26/20 COVID-19 Vaccine Completed 10/02/2024, , 02/23/2022, Additional history exists Pneumococcal Vaccine: 50+ Years Completed 12/14/2024 HIV Screening Completed 01/28/2025, 03/24/2023 Hepatitis C Screening Completed 01/28/2025, 023 RSV Patients and Patients Aged 60 years or older Completed 05/23/2025 HIB Vaccines Aged Out No longer eligi ble based on patient's age to complete this topic HPV Vaccines Aged Out No longer eligi ble based on patient's age to complete this topic Hepatitis A Vaccines Aged Out No long er eligible based on patient's age to complete this topic IPV Vaccines Aged Out No longer eligi ble based on patient's age to complete this topic Meningococcal B Vaccine Aged Out No l onger eligible based on patient's age to complete this topic Meningococcal Vaccine Aged Out No zafar michael eligible based on patient's age to complete this topic RSV under 20 months Aged Out No longe r eligible based on patient's age to complete this topic Rotavirus Vaccines Aged Out No longer eligible based on patient's age to complete this topic Goals Goal Patient Goal Type Associated Problems Recent Progress Patient-Stated? Author Blood Pressure < 140/90 Blood Pressure 130/82( 025 2:12 PM EDT) No Mary House PharmD Procedures Procedure Name Priority Date/Time Associated Diagnosis Comments XR KNEE 4+ VIEWS RIGHT Routine 07/01/2025 2:00 PM EDT Acute pain of right knee AUTOMATED VISUAL FIELD, EXTENDED - OU - BOTH EYES Routine 06/18/2025 4:00 PM EDT Other disorders of optic nerve, not elsewhere classified, bilateral HEPATITIS PANEL, GENERAL Routine 01/28/2025 10:05 AM EDT Preventative health care HIV 1/2 ANTIGEN/ANTIBODY, FOURTH GENERATION W/RFL Routine 01/28/2025 10:05 AM EDT Preventative health care LIPID PANEL WITH REFLEX TO DIRECT LDL Routine 10/02/2024 10:12 AM EST Essential hypertension PERIODIC ORAL EVALUATION - ESTABLISHED PATIENT Routine 07/15/2023 10:00 AM EDT BI MAMMOGRAM SCREENING TOMOSYNTHESIS BILATERAL Routine 04/26/2023 10:55 AM EDT HM COLONOSCOPY Routine 06/23/2022 1:06 PM EDT THINPREP IMAGING PAP AND HPV MRNA E6/E7 WITH REFLEX TO HPV 16,18/45 Routine 02/15/2022 11:07 AM EDT INTRAORAL - COMPLETE SERIES OF RADIOGRAPHIC IMAGES Routine 08/01/2019 12:00 AM EDT from Last 3 Months or Most Recently Relevant to Health Maintenance Results * XR Knee 4+ Views Right (07/01/2025 2:00 PM EDT) Anatomical Region Laterality Modality Lower Extremities, Knee Right [facility] Imaging 07/01/2025 2:00 PM EDT Narrative 07/01/2025 3:56 PM EDT [address] [address] XRay Report Signed Patient: Vania Perez I MR#: [id number] : 1970 Acct:[id number] Age/Sex: 54 / F ADM Date: 07/01/25 Loc: HO.CX Attending Dr: Yaa Traore MD Ordering Physician: Yaa Nolan MD Date of Service: 07/01/25 Procedure(s): XR knee RT 4V Accession Number(s): [id number] cc: Yaa Nolan MD EXAMINATION: XR KNEE, [...] 07/01/25 1553 DD/ 1400 TD/TT: 07/01/25 1405 Networking Specialist: Procedure Note Donotuseinterpreter, Image - 07/01/2025 [place] [address] XRay Report Signed Patient: Vania Perez IMR#: [id number] : 1970Acct:[id number] Age/Sex: 54 / FADM Date: 07/01/25 [facility]: Yaa Traore MD Ordering Physician: Yaa Nolan MD Date of Service: 07/01/25 Procedure(s): XR knee RT 4V Accession Number(s): [id number] cc: Yaa Nolan MD EXAMINATION: XR KNEE, [...] Otero MD 07/01/2025 03:53 PM EDT RP Dictated By: Maikol Otero MD Signed By: <Electronically signed by Maikol Otero MD in OV> 07/01/25 1553 DD/ 1400 TD/TT: 07/01/25 1405 Networking Specialist: us Yaa Traore MD IMG XR PROCEDURES Fin al Result * Automated Visual Field, Extended - OU - Both Eyes (06/18/2025 4:00 PM EDT) Maria Antonia Mosher, OD - 06/18/2025 4:00 PM EDT VISUAL FIELD INTERPRETATION Right eye (OD) Reliability: reliable (0/7 FP, 1/7 FN) Findings: MD 9.1, PSD 3.7, enlarged blindspot with superior arcuate-like pattern. Consistent with thinned GCL inferior nasal. Baseline Left eye (OS) Reliability: reliable (0/7 FP, 0/7 FN) Findings: MD 1.6, PSD 2.4, few cluster of defects superior periphery. No structural correlation on GCL OCT. 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 Baseline visual field (VF) testing done. RTC in for annual CEE. us Maria Antonia Bhakta OD OPHTH VISUAL FIELD Final Result * Hepatitis Panel, General (01/28/2025 10:05 AM EDT) Hepatitis A IgM Nonreactive Nonreactive [facility] Comment:IgM antibodies to GODWIN V not detected; does not exclude earlyacute or recovered HAV infection. ~Hepatitis B Surface Antibody REACTIVE Nonreactive [facility] Comment:REACTIVE: > 11.99 mI U/mL Hepatitis B Core Antibody Nonreactive Nonreactive [facility] Hepatitis C Antibody Nonreactive Nonreactive [facility] Comment:Antibodies to HCV no t detected; does not exclude early acuteHCV infection. Hepatitis B Surface Ag Negative Negative [facility] Blood 01/28/2025 10:0 5 AM EDT 01/28/2025 11:36 AM EDT Shahana Hernandez MD LAB BLOOD ORDERABLES Fin al Result Performing Organization Address [facility]/ZIP Co de Phone Number [facility] [address] [place] [address] [phone] * HIV-1/2 Antigen and Antibodies, Fourth Generation, with Reflexes (01/28/2025 10:05 AM EDT) Pathologist [facility] HIV AB/AG Nonreactive Nonreactive [facility] Comment:HIV-1 p24 Ag and/or HIV-1/HIV-2 Ab not detected.A test result that is nonreactive does not exclude thepossibility of exposure to or infection with HIV-1 and/orHIV-2. Nonreactive results in this assay for individualswith prior exposure to HIV-1 and/or HIV-2 may be due toantigen and antibody levels that are below the limit ofdetection of this assay.The [employer] HIV Ag/Ab Combo assay result andsupplemental assay results should be interpreted inconjunction with the patient's clinical presentation,history and other laboratory results. If the results areinconsistent with clinical evidence, additional testing issuggested to confirm the result. Blood Venous blood specimen / Unknown 01/28/2025 10:05 AM EDT 01/28/2025 11:36 AM EDT Shahana Hernandez MD LAB BLOOD ORDERABLES Fin al Result Performing Organization Address [facility]/ZIP Co de Phone Number [facility] [address] [place] [address] [phone] * Lipid Panel with Reflex to Direct LDL (10/02/2024 10:12 AM EST) Triglycerides 48 <150 mg/dL [facility] Comment:Desirable Triglyceri de: less than 150 mg/dLBorderline High Triglyceride 150-199 mg/dLHigh Triglyceride: 200-499 mg/dLVery High Triglyceride: greater than or equal to 5OO mg/dL Cholesterol 161 <200 mg/dL [facility] Comment:Desirable Cholestero l: less than 200 mg/dLBorderline High Cholesterol: 200-239 mg/dLHigh Cholesterol: greater than 239 mg/dL LDL Cholesterol Calculated 93 <100 mg/dL [facility] Comment:Desirable LDL: less than 100 mg/dLNear Optimal/Above Optimal LDL: 110- 129 mg/dLBorderline High LDL: 130-159 mg/dLHigh LDL: 160-189 mg/dLVery High LDL: greater than or equal to 190 mg/dL HDL Cholesterol 59 >40 mg/dL [facility] Comment:Desirable HDL: great er than 40 mg/dL Note: This HDL assay may give artificially low results in patients with liver disease. Blood 10/02/2024 10:1 2 AM EST 10/02/2024 11:44 AM EST us Shahana Hernandez MD LAB BLOOD ORDERABLES Fin al Result [facility] [address] [place] [address] [phone] * BI Mammogram Screening Tomosynthesis Bilateral (04/26/2023 10:55 AM EDT) Anatomical Region Laterality Modality Breast Bilateral Mammography 04/26/2023 10:5 5 AM EDT Narrative 04/29/2023 6:08 PM EDT [facility] [address] [place] [address] Mammography Report Signed Patient: Vania Perez I MR#: [id number] : 1970 Acct:[id number] Age/Sex: 52 / F ADM Date: 04/26/23 Loc: HO.MAMMO Attending Dr: Jason Fonseca MD Ordering Physician: Jason Fonseca MD Resu lts: 1Negative Date of Service: 04/26/23 Follow Up: 1 Year From Orig inal Mammogram Procedure(s): MM tomosynthesis screening BI Accession Number(s): [id number] cc: Jason Fonseca MD EXAMINATION: MM SCREENING DIGITAL BREAST TOMOSYNTHESIS, BILATERAL CLINICAL INFORMATION: Screening. Asymptomatic. The lifetime risk of breast cancer based on the Tyrer-Cuzick Model is 17.5%. COMPARISON: Mammography: July 23, 2015 and studies dating back to June 08, 2011 TECHNIQUE: Digital breast tomosynthesis is performed in both the craniocaudal and mediolateral oblique views along with computer-aided detection (CAD). Synthesized 2D images are generated from the tomosynthesis. FINDINGS: There are scattered areas of fibroglandular density (ACR BI-RADS breast composition Category b). There are no significant masses, abnormal calcifications, or other abnormalities. MM/MM tomosynthesis screening BI IMPRESSION: No significant changes from prior exam. ASSESSMENT: BI-RADS 1: Negative RECOMMENDATION: Routine annual mammography screening. This patient's information was entered into a reminder system with a target due date for their next mammogram. Dictated By: Jaziel Abdi MD Signed By: <Electronically signed by Jaziel Abdi MD in OV> 04/29/23 1805 DD/ 1055 TD/TT: Networking Specialist: SK Procedure Note Donotuseinterpreter, Image - 05/05/2023 [facility] [address] [place], [place] [address] Mammography Report Signed Patient: Vania Perez IMR#: [id number] : 1970Acct:[id number] Age/Sex: 52 / FADM Date: 04/26/23 Loc: YANET Attending Dr: Jason Fonseca MD Ordering Physician: Jason Fonseca MDResu lts: 1Negative Date of Service: 04/26/23Follow Up: 1 Year From Orig inal Mammogram Procedure(s): MM tomosynthesis screening BI Accession Number(s): [id number] cc: Jason Fonseca MD EXAMINATION: MM SCREENING DIGITAL BREAST TOMOSYNTHESIS, BILATERAL CLINICAL INFORMATION: Screening. Asymptomatic. The lifetime risk of breast cancer based on the Tyrer-Cuzick Model is 17.5%. COMPARISON: Mammography: July 23, 2015 and studies dating back to June 08, 2011 TECHNIQUE: Digital breast tomosynthesis is performed in both the craniocaudal and mediolateral oblique views along with computer-aided detection (CAD). Synthesized 2D images are generated from the tomosynthesis. FINDINGS: There are scattered areas of fibroglandular density (ACR BI-RADS breast composition Category b). There are no significant masses, abnormal calcifications, or other abnormalities. MM/MM tomosynthesis screening BI IMPRESSION: No significant changes from prior exam. ASSESSMENT: BI-RADS 1: Negative RECOMMENDATION: Routine annual mammography screening. This patient's information was entered into a reminder system with a target due date for their next mammogram. Dictated By: Jaziel Abdi MD Signed By: <Electronically signed by Jaziel Abdi MD in OV> 04/29/23 1805 DD/ 1055 TD/TT: Networking Specialist: RAFI [facility] External Provider IMG BI PROCEDURES Final Result * Hm Colonoscopy (06/23/2022 1:06 PM EDT) Colonoscopy Normal Normal Impressions Jason Cross MD - 06/23/2022 1:06 PM EDT Diverticulosis, Internal Hemorrhoids Historical Provider HEALTH MAINTENANCE Final Result * THINPREP TIS PAP AND HPV mRNA E6/E7 WITH REFLEX TO HPV 16,18/45 (02/15/2022 11:07 AM EDT) Clinical Information: None given [facility] COMMENT SEE COMMENT [facility] Comment: EXPLANATORY NOTE: The Pap is a screening test for cervical cancer. It is not a diagnostic test and is subject to false negative and false positive results. It is most reliable when a satisfactory sample, regularly obtained, is submitted with relevant clinical findings and history, and when the Pap result is evaluated along with historic and current clinical information. COMMENT: This Pap test has been evaluated with computer assisted technology. [facility] Filter Washer And Presser: SEE COMMENT [facility] Comment: RMM, CT(ASCP) CT screening location: [address] [address] HPV nRNA E6/E7 Not Detected Not Detected [facility] Comment: Methodology: Boat Puller-Mediated Amplification This assay detects E6/E7 viral messenger RNA (mRNA) from 14 high-risk HPV types (16,18,31,33,35,39,45,51,52,56,58,59,66,68). The analytical performance characteristics of this assay have been determined by [employer]. The modifications have not been cleared or approved by the FDA. This assay has been validated pursuant to the CLIA regulations and is used for clinical purposes. For additional information, please refer to http://education.Education Everytime/faq/MCL809d7 (This link if provided for information/ educational purposes only.) Interpretation/Re sult: Negative for intraepithelial lesion or malignancy. [employer] LMP: 02/21/22 [facility] Prev. BX: NONE GIVEN [facility] Prev. PAP: NONE GIVEN [facility] SOURCE: None given [facility] Statement Of Adequacy: SEE COMMENT [facility] Comment: Satisfactory for evaluation. Endocervical/transformation zone component present. Partially obscuring blood 02/15/2022 11:0 7 AM EDT us Grace Dutton CNM LAB PATHOLOGY ORDERABLES Final Result [facility] [address] from Last 3 Months or Most Recently Relevant to Health Maintenance Insurance [facility] Care Teams Warehouse Order Filler Relationship Specialty Start Date End Date Shahana Hernandez MD [address] [place] [address] PCP - General Internal Medicine 10/02/24 Mary House PharmD [address] [place] [address] Pharmacist Internal Medicine 04/11/23
--- OUTSIDE RECORDS SUMMARY | 2025-07-01 16:19 | XMS_ITS | Encounter Summary ---
Author Organization [employer] Address [address] [facility] 7t [place] [address] Care Team Providers Care Workers Compensation Claims Adjuster Name Role Phone Mary House PharmD Unavailable [phone] Shahana Hernandez MD Primary Care Provider + Reason for Visit * Reason Onset Date Comments Med Refill 04/12/2025 Encounter Details Date Type Department Care Team (Late st Contact Info) Description 04/12/2025 Refill [facility] [address] [place] [address] Jason Cross MD [address] [place] [address] Essential (primary) hypertension; Acquired hypothyroidism Social History [...] documented as of this encounter Care Teams Workers Compensation Claims Adjuster Relationship Specialty Start Date End Date Shahana Hernandez MD [address] [place] [address] PCP - General Internal Medicine 10/02/24 Mary House PharmD [address] [place], [place] [phone] Pharmacist Internal Medicine 04/11/23 documented as of this encounter
--- OUTSIDE RECORDS SUMMARY | 2025-07-01 16:19 | XMS_ITS | Encounter Summary ---
Author Organization [employer] Address [address] [facility] 7t [place] [address] Care Team Providers Care Angiography Nurse Name Role Phone Mary House PharmD Unavailable [phone] Shahana Hernandez MD Primary Care Provider + Reason for Visit * Reason Onset Date Comments Med Refill 04/12/2025 Encounter Details Date Type Department Care Team (Late st Contact Info) Description 04/12/2025 Refill [facility] [address] [place] [address] Shahana Hernandez MD [address] [place] [address] Social History Tobacco Use Types Packs/Day Years [...] documented as of this encounter Care Teams Angiography Nurse Relationship Specialty Start Date End Date Shahana Hernandez MD [address] [place] [address] PCP - General Internal Medicine 10/02/24 Mary House, PharmD [address] [place] [address] Pharmacist Internal Medicine 04/11/23 documented as of this encounter
== END 2025-07-01 14:37 | disposition home or self-care (01) ==
LOC: HO.HHCX 14:36
PROVIDERS: Visit Provider Internal Medicine
DX: M25.561 Pain in right knee (principal)
CPT/HCPCS: 73564

== ENCOUNTER → 2025-07-01 14:36 | Outpatient (BNV) | payer MEDICAID, SELFPAY | PROVIDERS: Visit Provider Radiology Diagnostic Radiology | DX: M17.11 Unilateral primary osteoarthritis, right knee (principal) | CPT/HCPCS: 73564 ==

== ENCOUNTER 2025-08-08 09:23 | Outpatient (AMB) | payer MEDICAID, SELFPAY ==
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
[2025-08-08 09:47] VITALS: BMI 34.0
--- OUTSIDE RECORDS SUMMARY | 2025-08-08 10:19 | XMS_ITS | Encounter Summary ---
Author Organization [employer] Address [address] [facility] 7t [place] [address] Care Team Providers Care Cloth Grader Name Role Phone Mary House PharmD Unavailable [phone] Shahana Hernandez MD Primary Care Provider + Reason for Visit * Reason Onset Date Comments Med Refill 05/05/2025 Encounter Details Date Type Department Care Team (Late st Contact Info) Description 05/05/2025 Refill [facility] [address] [place] [address] Jason Cross MD [address] [place] [address] Essential (primary) hypertension; Acquired hypothyroidism Social History [...] documented as of this encounter Care Teams Cloth Grader Relationship Specialty Start Date End Date Shahana Hernandez MD [address] [place] [address] PCP - General Internal Medicine 10/02/24 Mary House PharmD [address] [place], [place] [phone] Pharmacist Internal Medicine 04/11/23 documented as of this encounter
--- OUTSIDE RECORDS SUMMARY | 2025-08-08 10:19 | XMS_ITS | Patient Health Record ---
Author Organization [facility] Address [address] [place] [address] Care Team Providers Care Machine Design Checker Name Role Phone Dung Acevedo MD, Jason Primary Care Provide r Shubham Santiago Unavailable [phone] Allergies No Known Allergies Reason For Referral [...] Problem Status W/U Status Risk Notes Problem Screening for malignant neoplasm of colon (727665987) Encounter for screening for malignant neoplasm of colon (Z12.11) Active confirmed Problem Pre-procedure evaluation check (696198695) Encounter for other preprocedural examination (Z01.818) Active confirmed Problem Family History of Cancer of Colon (Situation) (607374637) Family history of colon cancer (Z80.0) Active confirmed Problem Diverticulosis of colon (902433475) Diverticulosis of colon (K57.30) Active confirmed Plan Of Treatment Future Test Test Name Order Date COLONOSCOPY 04/30/2022 Insurance Providers Payer Name Payer Address Payer Phone Subscriber Number Group Number Insured Name Patient Relationship to Insured Coverage Start Date Coverage End Date [facility] [address] [place] [address] [id number] ARELI HILARIO Self - patient is the insured Medical (General) History Medical History History ICD Code Hypertension Hypothyroidism Denies NV,DM,CVA,Lung disease,renal dise ase Surgical History Surgery Date(Month/Year) Appendectomy 1996
--- OUTSIDE RECORDS SUMMARY | 2025-08-08 10:19 | XMS_ITS | Encounter Summary ---
Author Organization [employer] Address [address] [facility] 7t [place] [address] Care Team Providers Care Floor Runner Name Role Phone Mary House PharmD Unavailable [phone] Shahana Hernandez MD Primary Care Provider + Reason for Visit * Reason Onset Date Comments Med Refill 04/12/2025 Encounter Details Date Type Department Care Team (Late st Contact Info) Description 04/12/2025 Refill [facility] [address] [place] [address] Shahana Hernandez MD [address] [place] [address] Social History Tobacco Use Types Packs/Day Years [...] documented as of this encounter Care Teams Floor Runner Relationship Specialty Start Date End Date Shahana Hernandez MD [address] [place] [address] PCP - General Internal Medicine 10/02/24 Mary House, PharmD [address] [place] [address] Pharmacist Internal Medicine 04/11/23 documented as of this encounter
--- OUTSIDE RECORDS SUMMARY | 2025-08-08 10:19 | XMS_ITS | Encounter Summary ---
Author Organization [employer] Address [address] [facility] 7t [place] [address] Care Team Providers Care Water Reuse Program Manager Name Role Phone Mary House PharmD Unavailable [phone] Shahana Hernandez MD Primary Care Provider + Reason for Visit * Reason Onset Date Comments Nurse Triage 07/01/2025 Encounter Details Date Type Department Care Team ([facility] st Contact Info) Description 07/01/2025 Telephone [facility] [address] [place] [address] Shahana Hernandez MD [address] [place] [address] Nurse Triage Social History Tobacco Use Types [...] disposition. Pt is advised to come to [facility] today to be seen by provider. Pt [...] caller accepted this outcome. Contact pt at [phone] documented in this encounter Plan of Treatment [...] documented as of this encounter Care Teams Water Reuse Program Manager Relationship Specialty Start Date End Date Shahana Hernandez MD [address] [place] [address] PCP - General Internal Medicine 10/02/24 Mary House, PharmD [address] [place] [address] Pharmacist Internal Medicine 04/11/23 documented as of this encounter
--- OUTSIDE RECORDS SUMMARY | 2025-08-08 10:19 | XMS_ITS | Encounter Summary ---
Author Organization [employer] Address [address] [facility] 7t [place] [address] Care Team Providers Care Retail Department Supervisor Name Role Phone Mary House PharmD Unavailable [phone] Shahana Hernandez MD Primary Care Provider + Reason for Visit * Reason Onset Date Comments Med Refill 04/12/2025 Encounter Details Date Type Department Care Team (Late st Contact Info) Description 04/12/2025 Refill [facility] [address] [place] [address] Jason Cross MD [address] [place] [address] Essential (primary) hypertension; Acquired hypothyroidism Social History [...] documented as of this encounter Care Teams Retail Department Supervisor Relationship Specialty Start Date End Date Shahana Hernandez MD [address] [place] [address] PCP - General Internal Medicine 10/02/24 Mary House PharmD [address] [place], [place] [phone] Pharmacist Internal Medicine 04/11/23 documented as of this encounter
--- OUTSIDE RECORDS SUMMARY | 2025-08-08 10:19 | XMS_ITS | Clinical Summary ---
Author Organization [employer] Address [address] [facility] 7t [place] [address] Care Team Providers Care Associate Professor Of Art History Name Role Phone Mary House PharmD Unavailable [phone] Shahana Hernandez MD Primary Care Provider + Allergies No known active allergies Medications Blood Pressure Monitoring (Blood Pressure Cuff) misc Use daily as prescribed 1 each 01/29/20 25 Active meloxicam (Mobic) 15 MG tabletIndications :Chronic pain of both knees TAKE 1 TABLET BY MOUTH EVERY MORNING 30 tablet 05/07/20 25 Active hydroCHLOROthiazi de (Microzide) 12.5 MG capsuleIndication s:Essential (primary) hypertension TAKE 1 CAPSULE BY MOUTH EVERY DAY IN THE MORNING 90 capsule 1 05/23/20 25 Active ergocalciferol (Vitamin D2) 1.25 MG (28250 UT) capsule TAKE 1 CAPSULE BY MOUTH ONE TIME PER WEEK 12 capsule 07/09/20 25 Active levothyroxine (Synthroid, Levoxyl) 25 MCG tabletIndications :Acquired hypothyroidism TAKE 1 TABLET BY MOUTH EVERY DAY IN THE MORNING ON EMPTY STOMACH 90 tablet 1 07/15/20 25 Active levothyroxine (Synthroid, Levoxyl) 25 MCG tabletIndications :Acquired hypothyroidism TAKE 1 TABLET BY MOUTH EVERY DAY IN THE MORNING ON EMPTY STOMACH 90 tablet 1 01/15/20 25 2024 Discontinued acetaminophen (Tylenol Extra Strength) 500 MG tabletIndications :Acute pain of right knee Take 2 tablets (1,000 mg) by mouth every 8 (eight) hours if needed for moderate pain for up to 10 days. 30 tablet 07/01/20 25 2024 Active Problems Problem Noted Date Diagnosed Date [...] life style modifications, diet and referral to case resolution specialist. Recommended to decrease soda and sugary [...] at home. PAP smear is up-to-date, next 2026 Mammogram is up-to-date, next due March 2025, [...] activity. Check home BP BIW and prn CP/GODWIN/[facility] Non smoking patient. Fu in 4-6 months. [...] Encounters Date Type Department Care Team Description 07/13/2025 Refill [facility] [address] [place] [address] Shahana Hernandez MD Acquired hypothyroidism 07/04/2025 Telephone [facility] [address] [place] [address] Shahana Hernandez MD Call Back Request 07/01/2025 2:00 PM EDT Office Visit [facility] [address] [place] [address] Yaa Nolan MD Acute pain of right knee 07/01/2025 Results Follow-Up [facility] [address] [place] [address] Yaa Nolan MD XR Knee 4+ Views Right 07/01/2025 Travel 07/01/2025 Telephone [facility] [address] [place] [address] Shahana Hernandez MD Nurse Triage 07/01/2025 Refill [facility] [address] [place] [address] Shahana Hernandez MD 06/27/2025 3:45 PM EDT Office Visit [facility] [address] [place] [address] Rafael, Pat, OD Myopia, bilateral (Primary Dx) 06/18/2025 3:15 PM EDT Office Visit [facility] [address] [place] [address] Maria Antonia Bhakta, OD Other disorders of optic nerve, not elsewhere classified, bilateral (Primary Dx) 06/18/2025 Travel 06/11/2025 Travel 05/21/2025 Refill [facility] [address] [place] [address] Shahana Hernandez MD Essential (primary) hypertension from Last 3 Months Immunizations Immunization Administration [...] 06/20/2023, 04/11/2023 Hepatitis B Vaccines Completed 06/27/2024, 05/20/20 24 COVID-19 Vaccine Completed 10/02/2024, , 02/23/2022, Additional [...] PM EDT Narrative 07/01/2025 3:56 [place] [address] XRay Report Signed Patient: Vania Perez I MR#: [id number] : 1970 Acct:[id number] Age/Sex: 54 / F ADM Date: 07/01/25 Loc: HO.HHCX Attending Dr: Yaa Traore MD Ordering Physician: Yaa Nolan MD Date of Service: 07/01/25 Procedure(s): XR knee RT 4V Accession Number(s): [id number] cc: Yaa Nolan MD EXAMINATION: XR KNEE, [...] 07/01/25 1553 DD/ 1400 TD/TT: 07/01/25 1405 Regional Sales Leader: Procedure Note Donotuseinterpreter, Image - 07/01/[address] [address] XRay Report Signed Patient: Vania Perez IMR#: [id number] : 1970Acct:[id number] Age/Sex: 54 / FADM Date: 07/01/25 Loc: HO.HHCX Attending Dr: Yaa Traore MD Ordering Physician: Yaa Nolan MD Date of Service: 07/01/25 Procedure(s): XR knee RT 4V Accession Number(s): [id number] cc: Yaa Nolan MD EXAMINATION: XR KNEE, [...] 07/01/25 1553 DD/ 1400 TD/TT: 07/01/25 1405 Regional Sales Leader: us Yaa Traore MD IMG XR PROCEDURES Fin al Result * Automated Visual Field, Extended - OU - Both Eyes (06/18/2025 4:00 PM EDT) Narrative Maria Antonia Bhakta, OD - 06/18/2025 4:00 PM EDT VISUAL [...] Hepatitis Panel, General (01/28/2025 10:05 AM EDT) Pathologist [facility] Hepatitis A IgM Nonreactive Nonreactive [facility] Comment:IgM antibodies to GODWIN V not detected; does not exclude earlyacute or recovered HAV infection. ~Hepatitis B Surface Antibody REACTIVE Nonreactive [facility] Comment:REACTIVE: > 11.99 mI U/mL Hepatitis B Core Antibody Nonreactive Nonreactive [facility] Hepatitis C Antibody Nonreactive Nonreactive [facility] Comment:Antibodies to HCV no t detected; does not exclude early acuteHCV infection. Hepatitis B Surface Ag Negative Negative [facility] Blood 01/28/2025 10:0 5 AM EDT 01/28/2025 11:36 AM EDT us Shahana Hernandez MD LAB BLOOD ORDERABLES Fin al Result [facility] [address] [place] [phone] * HIV-1/2 Antigen and Antibodies, Fourth Generation, with Reflexes (01/28/2025 10:05 AM EDT) Pathologist [facility] HIV AB/AG Nonreactive Nonreactive [facility] Comment:HIV-1 p24 Ag and/or HIV-1/HIV-2 Ab not detected.A test result that is nonreactive does not exclude thepossibility of exposure to or infection with HIV-1 and/orHIV-2. Nonreactive results in this assay for individualswith prior exposure to HIV-1 and/or HIV-2 may be due toantigen and antibody levels that are below the limit ofdetection of this assay.The [employer] HIV Ag/Ab Combo assay result andsupplemental assay results should be interpreted inconjunction with the patient's clinical presentation,history and other laboratory results. If the results areinconsistent with clinical evidence, additional testing issuggested to confirm the result. Blood Venous blood specimen / Unknown 01/28/2025 10:05 AM EDT 01/28/2025 11:36 AM EDT us Shahana Hernandez MD LAB BLOOD ORDERABLES Fin al Result [facility] [address] [place] [phone] * Lipid Panel with Reflex to Direct LDL (10/02/2024 10:12 AM EST) Triglycerides 48 <150 mg/dL [facility] Comment:Desirable Triglyceri de: less than 150 mg/dLBorderline High Triglyceride 150-199 mg/dLHigh Triglyceride: 200-499 mg/dLVery High Triglyceride: greater than or equal to 5OO mg/dL Cholesterol 161 <200 mg/dL [facility] Comment:Desirable Cholestero l: less than 200 mg/dLBorderline High Cholesterol: 200-239 mg/dLHigh Cholesterol: greater than 239 mg/dL LDL Cholesterol Calculated 93 <100 mg/dL [facility] Comment:Desirable LDL: less than 100 mg/dLNear Optimal/Above Optimal LDL: 110- 129 mg/dLBorderline High LDL: 130-159 mg/dLHigh LDL: 160-189 mg/dLVery High LDL: greater than or equal to 190 mg/dL HDL Cholesterol 59 >40 mg/dL [facility] Comment:Desirable HDL: great er than 40 mg/dL Note: This HDL assay may give artificially low results in patients with liver disease. Blood 10/02/2024 10:1 2 AM EST 10/02/2024 11:44 AM EST Shahana Hernandez MD LAB BLOOD ORDERABLES Fin al Result [facility] [address] [place] [phone] * BI Mammogram Screening Tomosynthesis Bilateral (04/26/2023 10:55 AM EDT) Anatomical Region Laterality Modality Breast Bilateral Mammography 04/26/2023 10:5 5 AM EDT Narrative 04/29/2023 6:08 PM EDT [address] [place] [address] Mammography Report Signed Patient: Vania Perez I MR#: [id number] : 1970 Acct:[id number] Age/Sex: 52 / F ADM Date: 04/26/23 Loc: HO.MAMMO Attending Dr: Jason Fonseca MD Ordering Physician: Jason Fonseca MD Resu lts: 1Negative Date of Service: 04/26/23 Follow Up: 1 Year From [facility] ina Mammogram Procedure(s): MM tomosynthesis screening BI Accession Number(s): [id number] cc: Jason Fonseca MD EXAMINATION: MM SCREENING [...] for their next mammogram. Dictated By: Jaziel Adbi MD Signed By: <Electronically signed by Jaziel Abdi MD in OV> 04/29/23 1805 DD/ 1055 TD/TT: Regional Sales Leader: SK Procedure Note Donotuseinterpreter, Image - 05/05/2023 [facility] [address] [place] [address] Mammography Report Signed Patient: Vania Perez IMR#: [id number] : 1970Acct:[id number] Age/Sex: 52 / FADM Date: 04/26/23 Loc: [facility] Attending Dr: Jason Fonseca MD Ordering Physician: Jason Fonseca MDResu lts: 1Negative Date of Service: 04/26/23Follow Up: 1 Year From Orig inal Mammogram Procedure(s): MM tomosynthesis screening BI Accession Number(s): [id number] cc: Jason Fonseca MD EXAMINATION: MM SCREENING [...] in OV> 04/29/23 1805 DD/ 1055 TD/TT: Regional Sales Leader: SK [facility] External Provider IMG BI PROCEDURES Final [...] has been evaluated with computer assisted technology. [facility] Transit Planning Manager: SEE COMMENT [facility] Comment: M, CT(ASCP) CT screening location: [place] [address] HPV nRNA E6/E7 Not Detected Not Detected [facility] Comment: Methodology: Thermograph Operator-Mediated Amplification This assay detects E6/E7 viral messenger RNA (mRNA) from 14 high-risk HPV types (16,18,31,33,35,39,45,51,52,56,58,59,66,68). The analytical performance characteristics of this assay have been determined by [employer]. The modifications have not been cleared or approved by the FDA. This assay has been validated pursuant to the CLIA regulations and is used for clinical purposes. For additional information, please refer to http://education.Clikthrough.Anonymess/faq/HJM276o3 (This link if provided for information/ educational purposes only.) Interpretation/Re sult: Negative for intraepithelial lesion or malignancy. [facility] LMP: 02/21/22 [facility] Prev. BX: NONE GIVEN [facility] Prev. PAP: NONE GIVEN [facility] SOURCE: None given [facility] Statement Of Adequacy: SEE COMMENT [facility] Comment: Satisfactory for evaluation. Endocervical/transformation zone component present. Partially obscuring blood 02/15/2022 11:0 7 AM EDT us Grace Dutton CNM LAB PATHOLOGY ORDERABLES Final Result [facility] [address] [place] [address], from Last 3 Months or Most Recently Relevant to Health Maintenance Insurance [facility] Care Teams Associate Professor Of Art History Relationship Specialty Start Date End Date Shahana Hernandez MD [address] [place] [address] PCP - General Internal Medicine 10/02/24 Mary House PharmD [address] [place] [phone] Pharmacist Internal Medicine 04/11/23
--- OUTSIDE RECORDS SUMMARY | 2025-08-08 10:19 | XMS_ITS | Encounter Summary ---
Author Organization [employer] Address 75 [facility] 7t [place] [address] Care Team Providers Care Hvac Field Service Technician Name Role Phone Jason Cross MD Primary Care Provide r Mary House PharmD Unavailable [phone] Shahana Hernandez MD Primary Care Provider + Encounter Details Date Type Department Care Team (Late st Contact Info) Description 02/07/2023 Orders Only [facility] [address] [place] [address] Sima Spencer LPN Social History Tobacco Use [...] on filedocumented in this encounter Care Teams Hvac Field Service Technician Relationship Specialty Start Date End Date Jason Cross MD [address] [place], [place] [phone] PCP - General Internal Medicine 07/28/21 10/01/24 Shahana Hernandez MD [address] [place], [place] [phone] PCP - General Internal Medicine 10/02/24 Mary House, MicheleD [address] [place] [phone] Pharmacist Internal Medicine 04/11/23 documented as of this encounter
== END 2025-08-08 10:13 | disposition home or self-care (01) ==
LOC: HO.HOS 09:24
PROVIDERS: Visit Provider Orthopaedic Surgery
DX: S83.241A Other tear of medial meniscus, current injury, right knee, initial encounter (principal)
CPT/HCPCS: 99203

== ENCOUNTER → 2025-08-08 09:23 | Outpatient (BNVA) | payer MEDICAID, SELFPAY | PROVIDERS: Visit Provider Orthopaedic Surgery | DX: S83.241A Other tear of medial meniscus, current injury, right knee, initial encounter (principal) | CPT/HCPCS: 99202 ==

== ENCOUNTER → 2025-08-31 08:50 | Outpatient (BNV) | payer MEDICAID, SELFPAY | PROVIDERS: PCP Internal Medicine; Visit Provider Radiology Diagnostic Ultrasound | DX: S83.241A Other tear of medial meniscus, current injury, right knee, initial encounter (principal); S83.411A Sprain of medial collateral ligament of right knee, initial encounter; M17.11 Unilateral primary osteoarthritis, right knee; M25.461 Effusion, right knee | CPT/HCPCS: 73721 ==

== ENCOUNTER 2025-08-31 08:57 | Outpatient (REF) | payer MEDICAID, SELFPAY ==
--- NOTE | ~2025-08-31 | MR_ITS ---
EXAMINATION: MR KNEE WITHOUT CONTRAST, RIGHT CLINICAL INFORMATION: Medial meniscal tear COMPARISON: X-ray 07/01/2025 TECHNIQUE: MRI of the knee without contrast was performed using routine sequences on a high-field scanner. FINDINGS: MENISCI: Medial Meniscus: Intact Lateral Meniscus: Complex tear of the anterior horn and anterior root, with ill-defined amorphous tissue displaced anteriorly and the intercondylar region. Complex tear of the body, involving the superior surface and inner aspect of the body, with torn meniscal tissue subluxed into the meniscofemoral recess. Degenerative fraying/tear of the inner third of the posterior root/central posterior horn. LIGAMENTS: Cruciate: ACL mucoid degeneration. PCL is intact. Collateral: Mild MCL sprain. Intact LCL complex. EXTENSOR MECHANISM: Intact ARTICULAR CARTILAGE/BONE: Patellofemoral Compartment: Lateral patellar subluxation. Moderate arthritis, nonuniform patellar and trochlea chondral loss, subchondral cysts and edema. Medial Compartment: Mild-moderate arthritis, nonuniform chondral loss, subchondral femoral edema. Lateral Compartment: Moderate arthritis. Nonuniform chondral chondral loss with subchondral cysts and edema. No fracture. JOINT FLUID AND BURSAE: Large effusion. There is low signal foci in the joint space, suggestive of debris/loose bodies/synovitis. MR/MR knee RT wo con IMPRESSION: * Tear of the lateral meniscal anterior horn, anterior, body. Degenerative fraying/tear of the posterior root/central posterior horn. * ACL mucoid degeneration. * Mild MCL sprain * Mild/moderate tricompartment arthritis as above. *Large effusion. There is loose bodies/synovitis/debris. Electronically signed by: Nehemiah Haas MD 09/02/2025 07:31 AM EDT
--- OUTSIDE RECORDS SUMMARY | 2025-08-31 09:02 | XMS_ITS | Clinical Summary ---
Author Organization [employer] Address 75 [facility] 7t [place] [address] Care Team Providers Care Power Brake Rebuilder Name Role Phone Mary House PharmD Unavailable [phone] Shahana Hernandez MD Primary Care Provider + Allergies No known active allergies Medications Blood Pressure Monitoring (Blood Pressure Cuff) misc Use daily as prescribed 1 each 5 Active meloxicam (Mobic) 15 MG tabletIndications: Chronic pain of both knees TAKE 1 TABLET BY MOUTH EVERY MORNING 30 tablet 5 Active hydroCHLOROthiazid e (Microzide) 12.5 MG capsuleIndications :Essential (primary) hypertension TAKE 1 CAPSULE BY MOUTH EVERY DAY IN THE MORNING 90 capsule 1 5 Active ergocalciferol (Vitamin D2) 1.25 MG (98673 UT) capsule TAKE 1 CAPSULE BY MOUTH ONE TIME PER WEEK 12 capsule 5 Active levothyroxine (Synthroid, Levoxyl) 25 MCG tabletIndications: Acquired hypothyroidism TAKE 1 TABLET BY MOUTH EVERY DAY IN THE MORNING ON EMPTY STOMACH 90 tablet 1 5 Active Active Problems Problem Noted Date Diagnosed [...] life style modifications, diet and referral to donor services specialist. Recommended to decrease soda and sugary [...] up-to-date, next 2026 Mammogram is up-to-date, next March 2025, advised to schedule appointment as [...] Type Department Care Team Description 07/13/2025 Refill [facility] [address] [place] [phone] Shahana Hernandez MD Acquired hypothyroidism 07/04/2025 Telephone [facility] [address] [place] [address] [phone] Shahana Hernandez MD Call Back Request 07/01/2025 2:00 PM EDT Office Visit [facility] [address] [place] [address] [phone] Yaa Nolan MD Acute pain of right knee 07/01/2025 Results Follow-Up [facility] [address] [place] [address] [phone] Yaa Nolan MD XR Knee 4+ Views Right 07/01/2025 Travel 07/01/2025 Telephone [facility] [address] [place] [address] Shahana Hernadnez MD Nurse Triage 07/01/2025 Refill [facility] [address] [place] [address] Shahana Hernandez MD 06/27/2025 3:45 PM EDT Office Visit [facility] [address] [place] [address] RafaelAbdullahin, OD Myopia, bilateral (Primary Dx) 06/18/2025 3:15 PM EDT Office Visit [facility] [address] [place] [address] Maria Antonia Bhakta, OD Other disorders of optic nerve, not elsewhere classified, bilateral (Primary Dx) 06/18/2025 Travel 06/11/2025 Travel from Last 3 Months Immunizations Immunization [...] 07/01/2025 2:12 PM EDT Plan of Treatment Upcoming Encounters Date Type Department Care Team (Late st Contact Info) Description 09/06/2025 3:30 PM EDT Office Visit [facility] ADULT DENTAL [address] [place] [address] Jovanny Kent, DMD [address] [place] [address] Health Maintenance Due Date Last Done Comments CT Colonography 1971 Dental Prophylaxis 1971 FIT DNA/Cologuard 1971 FIT 1971 FOBT 1971 Sigmoidoscopy 1971 Dental X-Ray: Bitewings 08/02/2020 08/01/2019 Dental X-Ray: Full Mouth 08/02/2022 08/01/2019 Dental Oral Exam 01/14/2024 07/15/2023, 08/01/2019 Mammogram 04/26/2025 04/26/2023 Depression Screening 10/02/2025 10/02/2024, 03/22/20 23 SDOH Screening 01/10/2026 01/10/2025 Disability Screening 01/21/2026 01/21/2025 Alcohol/Substance Use Screening 01/28/2026 01/28/2025 Tobacco Screening 01/28/2026 01/28/2025 Cervical Cancer Screening 02/15/2027 HPV/Cotest 02/15/2027 02/15/2022 Pap Smear 02/15/2027 02/15/2022 Colonoscopy 06/23/2027 06/23/2022 Colorectal Cancer Screening 06/23/2027 Lipid Panel 10/02/2029 10/02/2024, 01/19/2022 DTaP/Tdap/Td Vaccines (3 - Td or Tdap) 12/31/2032 12/31/2022, 10/06/2017 Zoster Vaccines Completed 06/20/2023, 04/11/2023 Hepatitis B Vaccines Completed 06/27/2024, 03/26/20 24 Pneumococcal Vaccine: 50+ Years Completed 12/14/2024 HIV Screening Completed 01/28/2025, 03/24/2023 Hepatitis C Screening Completed 01/28/2025, 023 RSV Patients and Patients Aged 60 years or older Completed 05/23/2025 COVID-19 Vaccine Completed 08/07/2025, , 09/20/2022, Additional history exists Influenza Vaccine Completed 08/07/2025, , 09/01/2023, Additional history exists HIB Vaccines Aged Out No longer eligi [...] 2:12 PM EDT) No Mary House, Sultana Procedures Procedure Name Priority Date/Time Associated Diagnosis [...] Laterality Modality Lower Extremities, Knee Right [facility] 07/01/2025 2:00 PM EDT Narrative 07/01/2025 3:56 [place] [address] XRay Report Signed Patient: Vania Perez I MR#: [id number] : 1970 Acct:[id number] Age/Sex: 54 / F ADM Date: 07/01/25 Loc: [facility] Attending Dr: Yaa Traore MD Ordering Physician: Yaa Nolan MD Date of Service: 07/01/25 Procedure(s): XR knee RT 4V Accession Number(s): [id number] cc: Yaa Nolan MD EXAMINATION: XR KNEE, [...] 07/01/25 1553 DD/ 1400 TD/TT: 07/01/25 1405 Straight Knife Machine Cutter: Procedure Note Donotuseinterpreter, Image - 07/01/[address] [address] XRay Report Signed Patient: Vania Perez IMR#: [id number] : 1970Acct:[id number] Age/Sex: 54 / FADM Date: 07/01/25 Loc: HO.HHCX Attending Dr: Yaa Traore MD Ordering Physician: Yaa Nolan MD Date of Service: 07/01/25 Procedure(s): XR knee RT 4V Accession Number(s): [id number] cc: Yaa Nolan MD EXAMINATION: XR KNEE, [...] OV> 07/01/25 1553 DD/ 1400 TD/TT: 07/01/25 140 Straight Knife Machine Cutter: us Yaa Traore MD IMG XR PROCEDURES Fin al Result * Automated Visual Field, Extended - OU - Both Eyes (06/18/2025 4:00 PM EDT) Narrative GenemynorReynoldMaria Antonia, OD - 06/18/2025 4:00 PM EDT VISUAL [...] AM EDT) Hepatitis A IgM Nonreactive Nonreactive [facility] Comment:IgM antibodies to GODWIN V not detected; does not exclude earlyacute or recovered HAV infection. ~Hepatitis B Surface Antibody REACTIVE Nonreactive [facility] Comment:REACTIVE: > 11.99 mI U/mL Hepatitis B Core Antibody Nonreactive Nonreactive [facility] Hepatitis C Antibody Nonreactive Nonreactive [facility] Comment:Antibodies to HCV no t detected; does not exclude early acuteHCV infection. Hepatitis B Surface Ag Negative Negative [facility] Blood 01/28/2025 10:0 5 AM EDT 01/28/2025 11:36 AM EDT Shahana Hernandez MD LAB BLOOD ORDERABLES Fin al Result [facility] [address] [place] [phone] * HIV-1/2 Antigen and Antibodies, Fourth Generation, with Reflexes (01/28/2025 10:05 AM EDT) HIV AB/AG Nonreactive Nonreactive [facility] Comment:HIV-1 p24 Ag and/or HIV-1/HIV-2 Ab not detected.A test result that is nonreactive does not exclude thepossibility of exposure to or infection with HIV-1 and/orHIV-2. Nonreactive results in this assay for individualswith prior exposure to HIV-1 and/or HIV-2 may be due toantigen and antibody levels that are below the limit ofdetection of this assay.The [employer] HIV Ag/Ab Combo assay result andsupplemental assay results should be interpreted inconjunction with the patient's clinical presentation,history and other laboratory results. If the results areinconsistent with clinical evidence, additional testing issuggested to confirm the result. Blood Venous blood specimen / Unknown 01/28/2025 10:05 AM EDT 01/28/2025 11:36 AM EDT us Shahana Hernandez MD LAB BLOOD ORDERABLES Fin al Result [facility] [address] [place] [phone] * Lipid Panel with Reflex to Direct LDL (10/02/2024 10:12 AM EST) Triglycerides 48 <150 mg/dL [facility] Comment:Desirable Triglyceri de: less than 150 mg/dLBorderline High Triglyceride 150-199 mg/dLHigh Triglyceride: 200-499 mg/dLVery High Triglyceride: greater than or equal to 5OO mg/dL Cholesterol 161 <200 mg/dL [facility] Comment:Desirable Cholestero l: less than 200 mg/dLBorderline High Cholesterol: 200-239 mg/dLHigh Cholesterol: greater than 239 mg/dL LDL Cholesterol Calculated 93 <100 mg/dL [facility] Comment:Desirable LDL: less than 100 mg/dLNear Optimal/Above Optimal LDL: 110- 129 mg/dLBorderline High LDL: 130-159 mg/dLHigh LDL: 160-189 mg/dLVery High LDL: greater than or equal to 190 mg/dL HDL Cholesterol 59 >40 mg/dL [facility] Comment:Desirable HDL: great er than 40 mg/dL Note: This HDL assay may give artificially low results in patients with liver disease. Blood 10/02/2024 10:1 2 AM EST 10/02/2024 11:44 AM EST us Shahana Hernandez MD LAB BLOOD ORDERABLES Fin al Result [facility] [address] [place] [phone] * BI Mammogram Screening Tomosynthesis Bilateral (04/26/2023 10:55 AM EDT) Anatomical Region Laterality Modality Breast Bilateral Mammography 04/26/2023 10:5 5 AM EDT Narrative 04/29/2023 6:08 PM EDT [address] [place] [address] Mammography Report Signed Patient: Vania Perez I MR#: [id number] : 1970 Acct:[id number] Age/Sex: 52 / F ADM Date: 04/26/23 Loc: HO.MAMMO Attending Dr: Jason Fonseca MD Ordering Physician: Jason Fonseca MD Resu lts: 1Negative Date of Service: 04/26/23 Follow Up: 1 Year From Orig ina Mammogram Procedure(s): MM tomosynthesis screening BI Accession Number(s): [id number] cc: Jason Fonseca MD EXAMINATION: MM SCREENING [...] by Jaziel Abdi MD in OV> 04/29/23 180 DD/ 105 TD/TT: Straight Knife Machine Cutter: RAFI Procedure Note Donotuseinterpreter, Image - 05/05/2023 [facility] [address] [place] [address] Mammography Report Signed Patient: Vania Perez IMR#: [id number] : 1970Acct:[id number] Age/Sex: 52 / FADM Date: 04/26/23 Loc: HO.MAMMO Attending Dr: Jason Fonseca MD Ordering Physician: Jason Fonseca MDResu lts: 1Negative Date of Service: 04/26/23Follow Up: 1 Year From Orig inal Mammogram Procedure(s): MM tomosynthesis screening BI Accession Number(s): [id number] cc: Jason Fonseca MD EXAMINATION: MM SCREENING [...] by Jaziel Abdi MD in OV> 04/29/23 180 DD/ 1055 TD/TT: Straight Knife Machine Cutter: RAFI [facility] External Provider IMG BI PROCEDURES Final Result * Hm Colonoscopy (06/23/2022 1:06 PM EDT) Colonoscopy Normal Normal Impressions Jason Cross MD - 06/23/2022 1:06 PM EDT Diverticulosis, Internal Hemorrhoids Historical Provider HEALTH MAINTENANCE Final Result * THINPREP TIS PAP AND HPV mRNA E6/E7 WITH REFLEX TO HPV 16,18/45 (02/15/2022 11:07 AM EDT) Clinical Information: None given [facility] COMMENT SEE COMMENT [facility] ON [...] has been evaluated with computer assisted technology. [facility] Die Casting Supervisor: SEE COMMENT [facility] Comment: RMM, CT(ASCP) CT screening location: [place] [address] HPV nRNA E6/E7 Not Detected Not Detected [facility] Comment: Methodology: Slide Attendant-Mediated Amplification This assay detects E6/E7 viral messenger RNA (mRNA) from 14 high-risk HPV types (16,18,31,33,35,39,45,51,52,56,58,59,66,68). The analytical performance characteristics of this assay have been determined by [employer]. The modifications have not been cleared or approved by the FDA. This assay has been validated pursuant to the CLIA regulations and is used for clinical purposes. For additional information, please refer to http://education.[employer].Green A/faq/DVW651h1 (This link if provided for information/ educational purposes only.) Interpretation/Re sult: Negative for intraepithelial lesion or malignancy. [facility] LMP: 02/21/22 [facility] Prev. BX: NONE [facility]IV[facility] Prev. PAP: NONE [facility]IVEN [facility] SOURCE: None given [facility] Statement Of Adequacy: SEE COMMENT [facility] Comment: Satisfactory for evaluation. Endocervical/transformation zone component present. Partially obscuring blood 02/15/2022 11:0 7 AM EDT Grace Marija SARMIENTO LAB PATHOLOGY ORDERABLES Final Result [facility] [address] [place] [address], from Last 3 Months or Most Recently Relevant to Health Maintenance Insurance [facility] C3 DENTAL-[facility] MEDICAID STAND ADULT * Guarantor: Vania Perez I Account Type Relation to Patient Date of Phone Billing Address Personal/Family Self [phone] Care Teams Power Brake Rebuilder Relationship Specialty Start Date End Date Shahana Hernandez MD [address] [place] [phone] PCP - General Internal Medicine 10/02/24 Mary House, Sultana [address] [place] [phone] Pharmacist Internal Medicine 04/11/23
--- OUTSIDE RECORDS SUMMARY | 2025-08-31 09:02 | XMS_ITS | Encounter Summary ---
Author Organization [employer] Address 75 [facility] 7t [place] [address] Care Team Providers Care Alteration Manager Name Role Phone Jason Cross MD Primary Care Provide r Mary House PharmD Unavailable [phone] Shahana Hernandez MD Primary Care Provider + Encounter Details Date Type Department Care Team (Late st Contact Info) Description 02/07/2023 Orders Only [facility] [address] [place] [address] Sima Spencer LPN Social History Tobacco Use Types Packs/Day Years Used Date Smoking Tobacco: Never Assessed Comments Unknown Sex and Gender Information Value Date Recorded Sex Assigned at Female 09/06/2022 10:16 AM EDT Legal Sex Female 10:16 AM EDT Gender Identity Female 09/06/2022 10:16 AM EDT Sexual Orientation Straight 09/06/2022 10 :16 AM EDT documented as of this encounter Plan of Treatment Upcoming Encounters Date Type Department Care Team (Late st Contact Info) Description 09/06/2025 3:30 PM EDT Office Visit [facility] ADULT DENTAL [address] [place] [address] Jovanny Kent DMD [address] [place] [address] documented as of this encounter Visit Diagnoses Not on filedocumented in this encounter Care Teams Alteration Manager Relationship Specialty Start Date End Date Jason Cross MD [address] [place] [address] PCP - General Internal Medicine 07/28/21 10/01/24 Shahana Hernandez MD [address] [place] [address] PCP - General Internal Medicine 10/02/24 Mary House PharmD [address] [place] [address] Pharmacist Internal Medicine 04/11/23 documented as of this encounter
--- OUTSIDE RECORDS SUMMARY | 2025-08-31 09:03 | XMS_ITS | Patient Health Record ---
Author Organization [facility] Address [address] [place] [address] Care Team Providers Care Assistant County Attorney Name Role Phone Dung Acevedo MD, Jason Primary Care Provide r Shubham Santiago Unavailable [phone] Allergies No Known Allergies Reason For Referral No Information Medications Medication SIG (Take, Route, Frequency, Duration) Notes Start Date End Date Status Ibuprofen 800 MG TAKE 1 TABLET BY MOUTH THREE TIMES DAILY WITH FOOD Oral; Duration: 5 Active Chlorhexidine Gluconate 0.12 % RINSE FOR 30 SECONDS WITH A HALF OUNCE (15ml) TWICE DAILY, SPIT OUT -- DO NOT SWALLOW.. USE AFTER MEALS Mouth/Throat; Duration: 16 Active Levothyroxine Sodium 25 MCG TAKE 1 TABLE T BY MOUTH EVERY MORNING ON AN EMPTY STOMACH Oral; Duration: 30 Active hydroCHLOROthiazide 12.5 MG TAKE 1 TABLE T BY MOUTH EVERY DAY Oral; Duration: 30 Active Dulcolax (colon prep) 5 MG take at 3:00 p.m and 7:00p.m. Orally two tablets twice a day for one day; Duration: 1 day 04/30/2022 Active MiraLax (colon prep) 17 GM/SCOOP 1 238Gm bottle mixed with Gatorade or Crystal Light Orally begin at 5:00 p.m. the day before the procedure; Duration: 1 day 04/30/2022 Active Immunizations Vaccine Route [...] Problem Screening for malignant neoplasm of colon (942695346) Encounter for screening for malignant neoplasm of colon (Z12.11) Active confirmed Problem Pre-procedure evaluation check (205291956) Encounter for other preprocedural examination (Z01.818) Active confirmed Problem Family History of Cancer of Colon (Situation) (927882659) Family history of colon cancer (Z80.0) Active confirmed Problem Diverticulosis of colon (382032028) Diverticulosis of colon (K57.30) Active confirmed Plan Of Treatment Future Test Test Name Order Date COLONOSCOPY 04/30/2022 Insurance Providers Payer Name Payer Address Payer Phone Subscriber Number Group Number Insured Name Patient Relationship to Insured Coverage Start Date Coverage End Date [facility] [address] [place] [id number] ARELI HILARIO Self - patient is the insured Medical (General) History Medical History History ICD Code Hypertension Hypothyroidism Denies MD,DM,CVA,Lung disease,renal dise ase Surgical History Surgery Date(Month/Year) Appendectomy 1996
--- OUTSIDE RECORDS SUMMARY | 2025-08-31 09:04 | XMS_ITS | Encounter Summary ---
Author Organization [employer] Address 75 [facility] 7t [place] [address] Care Team Providers Care Mother Repairer Name Role Phone Mary House PharmD Unavailable [phone] Shahana Hernandez MD Primary Care Provider + Reason for Visit * Reason Onset Date Comments Med Refill 04/12/2025 Encounter Details Date Type Department Care Team (Late st Contact Info) Description 04/12/2025 Refill [facility] [address] [place] [address] Shahana Hernandez MD [address] [place] [address] Social History Tobacco Use Types Packs/Day Years [...] Description 09/06/2025 3:30 PM EDT Office Visit [facility] ADULT DENTAL [address] [place] [address] Jovanny Kent, DMD [address] [place] [address] documented as of this encounter Goals Goal [...] documented as of this encounter Care Teams Mother Repairer Relationship Specialty Start Date End Date Shahana Hernandez MD [address] [place] [address] PCP - General Internal Medicine 10/02/24 Mary House PharmD [address] [place] [address] Pharmacist Internal Medicine 04/11/23 documented as of this encounter
--- OUTSIDE RECORDS SUMMARY | 2025-08-31 09:04 | XMS_ITS | Encounter Summary ---
Author Organization [employer] Address 75 [facility] 7t [place] [address] Care Team Providers Care Lead Sustainability Specialist Name Role Phone Mary House PharmD Unavailable [phone] Shahana Hernandez MD Primary Care Provider + Reason for Visit * Reason Onset Date Comments Med Refill 05/05/2025 Encounter Details Date Type Department Care Team (Late st Contact Info) Description 05/05/2025 Refill [facility] [address] [place] [address] Jason Cross MD [address] [place] [address] Essential (primary) hypertension; Acquired hypothyroidism Social History [...] Description 09/06/2025 3:30 PM EDT Office Visit [facility] ADULT DENTAL [address] [place] [address] Jovanny Kent, DMD [address] [place] [address] documented as of this encounter Goals Goal [...] documented as of this encounter Care Teams Lead Sustainability Specialist Relationship Specialty Start Date End Date Shahana Hernandez MD [address] [place] [address] PCP - General Internal Medicine 10/02/24 Mary House PharmD [address] [place] [phone] Pharmacist Internal Medicine 04/11/23 documented as of this encounter
--- OUTSIDE RECORDS SUMMARY | 2025-08-31 09:05 | XMS_ITS | Encounter Summary ---
Author Organization [employer] Address 75 [facility] 7t [place] [address] Care Team Providers Care Street Light Servicer Helper Name Role Phone Mary House PharmD Unavailable [phone] Shahana Hernandez MD Primary Care Provider + Reason for Visit * Reason Onset Date Comments Med Refill 04/12/2025 Encounter Details Date Type Department Care Team (Late st Contact Info) Description 04/12/2025 Refill [facility] [address] [place] [address] Jason Cross MD [address] [place] [address] Essential (primary) hypertension; Acquired hypothyroidism Social History [...] Description 09/06/2025 3:30 PM EDT Office Visit [facility]ULT D[facility] [address] [place] [address] Jovanny Kent, DMD [address] [place] [address] documented as of this encounter Goals Goal [...] documented as of this encounter Care Teams Street Light Servicer Helper Relationship Specialty Start Date End Date Shahana Hernandez MD [address] [place] [address] PCP - General Internal Medicine 10/02/24 Mary House PharmD [address] [place] [phone] Pharmacist Internal Medicine 04/11/23 documented as of this encounter
--- OUTSIDE RECORDS SUMMARY | 2025-08-31 09:05 | XMS_ITS | Encounter Summary ---
Author Organization [employer] Address 75 [facility] 7t [place] [address] Care Team Providers Care Proof Passer Name Role Phone Mary House PharmD Unavailable [phone] Shahana Hernandez MD Primary Care Provider + Reason for Visit * Reason Onset Date Comments Nurse Triage 07/01/2025 Encounter Details Date Type Department Care Team ([facility] st Contact Info) Description 07/01/2025 Telephone [facility] [address] [place] [address] Shahana Hernandez MD [address] [place] [address] Nurse Triage Social History Tobacco Use Types [...] disposition. Pt is advised to come to [facility] today to be seen by provider. Pt [...] caller accepted this outcome. Contact pt at [phone] documented in this encounter Plan of Treatment Upcoming Encounters Date Type Department Care Team (Late st Contact Info) Description 09/06/2025 3:30 PM EDT Office Visit [facility] ADULT DENT[facility] [address] [place] [address] Jovanny Kent, DMD [address] [place] [address] documented as of this encounter Goals Goal Patient Goal Type Associated Problems Recent Progress Patient-Stated? Author Blood Pressure < 140/90 Blood Pressure 130/82( 025 2:12 PM EDT) No Mary House, MicheleD documented as of this encounter Visit Diagnoses Not on filedocumented in this encounter Additional Health Concerns Assessment Noted Time PHQ-9 Depression Total Score: 5 03/22/20 23 1:56 PM EDT documented as of this encounter Care Teams Proof Passer Relationship Specialty Start Date End Date Shahana Hernandez MD [address] [place] [address] PCP - General Internal Medicine 10/02/24 Mary House PharmD [address] [place] [phone] Pharmacist Internal Medicine 04/11/23 documented as of this encounter
== END 2025-08-31 08:58 | disposition home or self-care (01) ==
LOC: HO.MRI 08:57
PROVIDERS: PCP Internal Medicine; Visit Provider Orthopaedic Surgery
DX: S83.241A Other tear of medial meniscus, current injury, right knee, initial encounter (principal)
CPT/HCPCS: 73721

== ENCOUNTER 2025-10-08 10:17 | Outpatient (AMB) | payer MEDICAID, SELFPAY ==
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
--- OUTSIDE RECORDS SUMMARY | 2025-10-08 11:41 | XMS_ITS | Encounter Summary ---
Author Organization [employer] Address [address] [facility] [address] [place] [address] Care Team Providers Care Optical Scientist Name Role Phone Jason Cross MD Primary Care Provide r Mary House PharmD Unavailable [phone] Shahana Hernandez MD Primary Care Provider + Encounter Details Date Type Department Care Team (Late st Contact Info) Description 02/07/2023 Orders Only [facility] MEDICINE [address] [place] [address] Sima Spencer LPN Social History Tobacco Use [...] on filedocumented in this encounter Care Teams Optical Scientist Relationship Specialty Start Date End Date Jason Cross MD [address] [place], [place] [phone] PCP - General Internal Medicine 07/28/21 10/01/24 Shahana Hernandez MD [address] [place], [place] [phone] PCP - General Internal Medicine 10/02/24 Mary House, MicheleD [address] [place] [phone] Pharmacist Internal Medicine 04/11/23 documented as of this encounter
--- OUTSIDE RECORDS SUMMARY | 2025-10-08 11:42 | XMS_ITS | Encounter Summary ---
Author Organization [employer] Address [address] [facility] 7[address] [place] [address] Care Team Providers Care Material Assembler Name Role Phone Mary House PharmD Unavailable [phone] Shahana Hernandez MD Primary Care Provider + Reason for Visit * Reason Onset Date Comments Med Refill 05/05/2025 Encounter Details Date Type Department Care Team (Late st Contact Info) Description 05/05/2025 Refill [facility] MEDICINE [address] [place] [address] Jason Cross MD [address] [place] [address] Essential (primary) hypertension; Acquired hypothyroidism Social History [...] documented as of this encounter Care Teams Material Assembler Relationship Specialty Start Date End Date Shahana Hernandez MD [address] [place] [address] PCP - General Internal Medicine 10/02/24 Mary House PharmD [address] [place], [place] [phone] Pharmacist Internal Medicine 04/11/23 documented as of this encounter
--- OUTSIDE RECORDS SUMMARY | 2025-10-08 11:42 | XMS_ITS | Clinical Summary ---
Author Organization [employer] Address [address] [facility] 7[address] [place] [address] Care Team Providers Care Foundry Patternmaker Name Role Phone Mary House PharmD Unavailable [phone] Shahana Hernandez MD Primary Care Provider + [...] MORNING 90 capsule 1 05/23/20 25 Active levothyroxine (Synthroid, Levoxyl) 25 MCG tabletIndications :Acquired hypothyroidism TAKE 1 TABLET BY MOUTH EVERY DAY IN THE MORNING ON EMPTY STOMACH 90 tablet 1 07/15/20 25 Active ergocalciferol (Vitamin D2) 1.25 MG (70328 UT) capsule TAKE 1 CAPSULE BY MOUTH ONE TIME PER WEEK 12 capsule 10/07/20 25 Active ergocalciferol (Vitamin D2) 1.25 MG (26051 UT) capsule TAKE 1 CAPSULE BY MOUTH ONE TIME PER WEEK 12 capsule 07/09/20 25 2024 Discontinued Active Problems Problem Noted Date Diagnosed Date [...] life style modifications, diet and referral to human resources services specialist. Recommended to decrease soda and [...] PAP smear is up-to-date, next 1 due 2026 Mammogram is up-to-date, next 1 due March 2025, advised to schedule appointment as soon as she receives the reminder letter. Eye exam is up-to-date, next due December 2026 CRC screen is up today, [...] Encounters Date Type Department Care Team Description 10/06/2025 Refill [facility] MEDICINE [address] [place] [address] Shahana Hernandez MD 08/31/2025 Orders Only [facility] External Provider, [facility] 07/13/2025 Refill [facility] MEDICINE [address] [place] [address] Shahana Hernandez MD Acquired hypothyroidism from Last 3 Months Immunizations Immunization Administration [...] Answer Date Recorded Internet Access Q1 Yes 10/06/2025 Internet Access Q2 Not on file 10/06/2025 Comments No Sex and Gender Information Value [...] 04/26/2025 04/26/2023 Depression Screening 10/02/2025 10/02/2024, 03/22/20 SDOH Screening 01/10/2026 01/10/2025 Disability Screening 01/21/2026 01/21/2025 Alcohol/Substance Use Screening 01/28/2026 01/28/2025 Tobacco Screening 01/28/2026 01/28/2025 Cervical Cancer Screening 02/15/2027 HPV/Cotest 02/15/2027 02/15/2022 Pap Smear 02/15/2027 02/15/2022 Colonoscopy 06/23/2027 06/23/2022, 06/23/2022 Colorectal Cancer Screening 06/23/2027 Lipid Panel [...] Procedure Name Priority Date/Time Associated Diagnosis Comments MR KNEE WO CONTRAST RIGHT Routine 08/31/2025 9:00 AM EDT HEPATITIS PANEL, GENERAL Routine 01/28/2025 10:05 AM [...] Recently Relevant to Health Maintenance Results * MR Knee w/o Contrast Right (08/31/2025 9:00 AM EDT) Anatomical Region Laterality Modality Magnetic Resonan ce 08/31/2025 9:00 AM EDT Narrative 09/02/2025 7:35 AM EDT [place] [address] Magnetic Resonance Report Signed Patient: Vania Perez I MR#: [id number] : 1970 Acct:[id number] Age/Sex: 55 / F ADM Date: 08/31/25 Loc: HO.MRI Attending Dr: Joshua Strickland MD Ordering Physician: Joshua Strickland MD Date of Service: 08/31/25 Procedure(s): MR knee RT wo con Accession Number(s): [id number] cc: Shahana Hernandez MD; Joshua Strickland MD Reason for Exam: S83.241A - Other tear of medial meniscus, current injury, right knee, in... EXAMINATION: MR KNEE WITHOUT CONTRAST, RIGHT CLINICAL INFORMATION: Medial meniscal tear COMPARISON: X-ray 07/01/2025 TECHNIQUE: MRI of the knee without contrast was performed using routine sequences on a high-field scanner. FINDINGS: MENISCI: Medial Meniscus: Intact Lateral Meniscus: Complex tear of the anterior horn and anterior root, with ill-defined amorphous tissue displaced anteriorly and the intercondylar region. Complex tear of the body, involving the superior surface and inner aspect of the body, with torn meniscal tissue subluxed into the meniscofemoral recess. Degenerative fraying/tear of the inner third of the posterior root/central posterior horn. LIGAMENTS: Cruciate: ACL mucoid degeneration. PCL is intact. Collateral: Mild MCL sprain. Intact LCL complex. EXTENSOR MECHANISM: Intact ARTICULAR CARTILAGE/BONE: Patellofemoral Compartment: Lateral patellar subluxation. Moderate arthritis, nonuniform patellar and trochlea chondral loss, subchondral cysts and edema. Medial Compartment: Mild-moderate arthritis, nonuniform chondral loss, subchondral femoral edema. Lateral Compartment: Moderate arthritis. Nonuniform chondral chondral loss with subchondral cysts and edema. No fracture. JOINT FLUID AND BURSAE: Large effusion. There is low signal foci in the joint space, suggestive of debris/loose bodies/synovitis. MR/MR knee RT wo con IMPRESSION: * Tear of the lateral meniscal anterior horn, anterior, body. Degenerative fraying/tear of the posterior root/central posterior horn. * ACL mucoid degeneration. * Mild MCL sprain * Mild/moderate tricompartment arthritis as above. *Large effusion. There is loose bodies/synovitis/debris. Electronically signed by: Nehemiah Haas MD 09/02/2025 07:31 AM EDT Dictated By: Nehemiah Haas MD Signed By: <Electronically signed by Nehemiah Haas MD in OV> 09/02/25 07 DD/ 9 TD/TT: 08/31/25924 Flue Lining Dipper: Procedure Note Donotuseinterpreter, Image - 09/02/[address] [address] Magnetic Resonance Report Signed Patient: Vania Perez [facility]#: [id number] : 1970Acct:[id number] Age/Sex: 55 / FADM Date: 08/31/25 Loc: HO.MRI Attending Dr: Joshua Strickland MD Ordering Physician: Joshua Strickland MD Date of Service: 08/31/25 Procedure(s): MR knee RT wo con Accession Number(s): [id number] cc: Shahana Hernandez MD; Joshua Strickland MD Reason for Exam: S83.241A - Other tear of medial meniscus, currentinjury, right knee, in... EXAMINATION: MR KNEE WITHOUT CONTRAST, RIGHT CLINICAL INFORMATION: Medial meniscal tear COMPARISON: X-ray 07/01/2025 TECHNIQUE: MRI of the knee without contrast was performed using routine sequences on a high-field scanner. FINDINGS: MENISCI: Medial Meniscus: Intact Lateral Meniscus: Complex tear of the anterior horn and anterior root, with ill-defined amorphous tissue displaced anteriorly and the intercondylar region. Complex tear of the body, involving the superior surface and inner aspect of the body, with torn meniscal tissue subluxed into the meniscofemoral recess. Degenerative fraying/tear of the inner third of the posterior root/central posterior horn. LIGAMENTS: Cruciate: ACL mucoid degeneration. PCL is intact. Collateral: Mild MCL sprain. Intact LCL complex. EXTENSOR MECHANISM: Intact ARTICULAR CARTILAGE/BONE: Patellofemoral Compartment: Lateral patellar subluxation. Moderate arthritis, nonuniform patellar and trochlea chondral loss, subchondral cysts and edema. Medial Compartment: Mild-moderate arthritis, nonuniform chondral loss, subchondral femoral edema. Lateral Compartment: Moderate arthritis. Nonuniform chondral chondral loss with subchondral cysts and edema. No fracture. JOINT FLUID AND BURSAE: Large effusion. There is low signal foci in the joint space, suggestive of debris/loose bodies/synovitis. MR/MR knee RT wo con IMPRESSION: * Tear of the lateral meniscal anterior horn, anterior, body. Degenerative fraying/tear of the posterior root/central posterior horn. * ACL mucoid degeneration. * Mild MCL sprain * Mild/moderate tricompartment arthritis as above. *Large effusion. There is loose bodies/synovitis/debris. Electronically signed by: Nehemiah Haas MD 09/02/2025 07:31 AM EDT Dictated By: Nehemiah Haas MD Signed By: <Electronically signed by Nehemiah Haas MD in OV> 09/02/25 0731 DD/ 0900 TD/TT: 08/31/25 0925 Flue Lining Dipper: SANGITA [facility] External Provider IMG MRI PROCEDURES Edited Result - Final * Hepatitis Panel, General (01/28/2025 10:05 AM EDT) Hepatitis A IgM Nonreactive Nonreactive [facility] Comment:IgM antibodies to GODWIN V not detected; does not exclude earlyacute or recovered HAV infection. ~Hepatitis B Surface Antibody REACTIVE Nonreactive [facility] Comment:REACTIVE: > 11.99 mI U/mL Hepatitis B Core Antibody Nonreactive Nonreactive [facility] Hepatitis C Antibody Nonreactive Nonreactive [facility] Comment:Antibodies to HCV no t detected; does not exclude early acuteHCV infection. Hepatitis B Surface Ag Negative Negative [facility] Blood 01/28/2025 10:0 5 AM EDT 01/28/2025 11:36 AM EDT Shahana Hernandez MD LAB BLOOD ORDERABLES Fin al Result [facility] [address] [place] [phone] * HIV-1/2 Antigen and Antibodies, Fourth Generation, with Reflexes (01/28/2025 10:05 AM EDT) HIV AB/AG Nonreactive Nonreactive [facility] Comment:HIV-1 p24 Ag and/or HIV-1/HIV-2 Ab not detected.A test result that is nonreactive does not exclude thepossibility of exposure to or infection with HIV-1 and/orHIV-2. Nonreactive results in this assay for individualswith prior exposure to HIV-1 and/or HIV-2 may be due toantigen and antibody levels that are below the limit ofdetection of this assay.The [employer] HIV Ag/Ab Combo assay result andsupplemental assay results should be interpreted inconjunction with the patient's clinical presentation,history and other laboratory results. If the results areinconsistent with clinical evidence, additional testing issuggested to confirm the result. Blood Venous blood specimen / Unknown 01/28/2025 10:05 AM EDT 01/28/2025 11:36 AM EDT us Shahana Hernandez MD LAB BLOOD ORDERABLES Fin al Result Performing Organization Address [facility]/ZIP Co de Phone Number [facility] [address] [place] [phone] * Lipid Panel with Reflex to Direct LDL (10/02/2024 10:12 AM EST) Triglycerides 48 <150 mg/dL [facility] Comment:Desirable Triglyceri de: less than 150 mg/dLBorderline High Triglyceride 150-199 mg/dLHigh Triglyceride: 200-499 mg/dLVery High Triglyceride: greater than or equal to 5OO mg/dL Cholesterol 161 <200 mg/dL [facility] Comment:Desirable Cholestero l: less than 200 mg/dLBorderline High Cholesterol: 200-239 mg/dLHigh Cholesterol: greater than 239 mg/dL LDL Cholesterol Calculated 93 <100 mg/dL [facility] Comment:Desirable LDL: less than 100 mg/dLNear Optimal/Above Optimal LDL: 110- 129 mg/dLBorderline High LDL: 130-159 mg/dLHigh LDL: 160-189 mg/dLVery High LDL: greater than or equal to 190 mg/dL HDL Cholesterol 59 >40 mg/dL [facility] Comment:Desirable HDL: great er than 40 mg/dL Note: This HDL assay may give artificially low results in patients with liver disease. Blood 10/02/2024 10:1 2 AM EST 10/02/2024 11:44 AM EST us Shahana Hernandez MD LAB BLOOD ORDERABLES Fin al Result Performing Organization Address [facility]/ZIP Co de Phone Number [facility] [address] [place] [phone] * BI Mammogram Screening Tomosynthesis Bilateral (04/26/2023 10:55 AM EDT) Anatomical Region Laterality Modality Breast Bilateral Mammography 04/26/2023 10:5 5 AM EDT Narrative 04/29/2023 6:08 PM EDT [place] [facility] [address] [place] [address] Mammography Report Signed Patient: Vania Perez I MR#: [id number] : 1970 Acct:[id number] Age/Sex: 52 / F ADM Date: 04/26/23 Loc: HO.MAMMO Attending Dr: Jason Fonseca MD Ordering Physician: Jason Fonseca MD Resu lts: 1Negative Date of Service: 04/26/23 Follow Up: 1 Year From Orig inal Mammogram Procedure(s): MM tomosynthesis screening BI Accession Number(s): [id number] cc: Jason Fonseca MD EXAMINATION: MM SCREENING [...] in OV> 04/29/23 1805 DD/ 1055 TD/TT: Flue Lining Dipper: SK Procedure Note Donotuseinterpreter, Image - 05/05/2023 [facility] [address] [place], [place] [address] Mammography Report Signed Patient: Vania Perez [facility]#: [id number] : 1970Acct:[id number] Age/Sex: 52 / FADM Date: 04/26/23 Loc: HO.MAMMO Attending Dr: Jason Fonseca MD Ordering Physician: Jason Fonseca MDResu lts: 1Negative Date of Service: 04/26/23Follow Up: 1 Year From Orig inal Mammogram Procedure(s): MM tomosynthesis screening BI Accession Number(s): [id number] cc: Jason Fonseca MD EXAMINATION: MM SCREENING [...] in OV> 04/29/23 1805 DD/ 1055 TD/TT: Flue Lining Dipper: RAFI [facility] External Provider IMG BI PROCEDURES Final Result * Hm Colonoscopy (06/23/2022 1:06 PM EDT) Colonoscopy Normal Normal Impressions Jason Cross MD - 06/23/2022 1:06 PM EDT Diverticulosis, Internal Hemorrhoids us Historical Provider [facility] Final Result * THINPREP TIS PAP AND HPV mRNA E6/E7 WITH REFLEX TO HPV 16,18/45 (02/15/2022 11:07 AM EDT) Clinical Information: None given [facility] COMMENT SEE COMMENT [facility]OUND[facility] ON [...] along with historic and current clinical information. Comment: This Pap test has been evaluated with computer assisted technology. [facility] Loss Control Technician: SEE COMMENT [facility] Comment: RMM, CT(ASCP) CT screening location: [place] [address] HPV nRNA E6/E7 Not Detected Not Detected [facility] Comment: Methodology: Wireworker Supervisor-Mediated Amplification This assay detects E6/E7 viral messenger RNA (mRNA) from 14 high-risk HPV types (16,18,31,33,35,39,45,51,52,56,58,59,66,68). The analytical performance characteristics of this assay have been determined by [employer]. The modifications have not been cleared or approved by the FDA. This assay has been validated pursuant to the CLIA regulations and is used for clinical purposes. For additional information, please refer to http://education.Greendizer.Peeractive/faq/WGP378d0 (This link if provided for information/ educational purposes only.) Interpretation/Re sult: Negative for intraepithelial lesion or malignancy. [facility] LMP: 02/21/22 [facility] Prev. BX: NONE GIVEN [facility] Prev. PAP: NONE GIVEN [facility] ON [facility] SOURCE: None given [facility] Statement Of Adequacy: SEE COMMENT [facility] Comment: Satisfactory for evaluation. Endocervical/transformation zone component present. Partially obscuring blood 02/15/2022 11:0 7 AM EDT us Grace Dicksonfidelina CN LAB PATHOLOGY ORDERABLES Final Result [facility] [address] from Last 3 Months or Most Recently Relevant to Health Maintenance Insurance [facility] C3 DENTAL-[facility] MEDICAID STAND ADULT Care Teams Foundry Patternmaker Relationship Specialty Start Date End Date Shahana Hernandez MD [address] [place] [address] PCP - General Internal Medicine 10/02/24 Mary House PharmD [address] [place] [address] Pharmacist Internal Medicine 04/11/23
--- OUTSIDE RECORDS SUMMARY | 2025-10-08 11:42 | XMS_ITS | Encounter Summary ---
Author Organization [employer] Address [address] [facility] 7t [place] [address] Care Team Providers Care Specialized Developer Name Role Phone Mary House PharmD Unavailable [phone] Shahana Hernandez MD Primary Care Provider + Reason for Visit * Reason Onset Date Comments Nurse Triage 07/01/2025 Encounter Details Date Type Department Care Team ([facility] st Contact Info) Description 07/01/2025 Telephone [facility] [address] [place] [address] Shahana Hernandez MD [address] [place] [address] Nurse Triage Social History Tobacco Use Types [...] disposition. Pt is advised to come to [facility] today to be seen by provider. [...] caller accepted this outcome. Contact pt at [phone] documented in this encounter Plan of Treatment [...] documented as of this encounter Care Teams Specialized Developer Relationship Specialty Start Date End Date Shahana Hernandez MD [address] [place] [address] PCP - General Internal Medicine 10/02/24 Mary House, PharmD [address] [place] [address] Pharmacist Internal Medicine 04/11/23 documented as of this encounter
--- OUTSIDE RECORDS SUMMARY | 2025-10-08 11:42 | XMS_ITS | Encounter Summary ---
Author Organization [employer] Address [address] [facility] [address] [place] [address] Care Team Providers Care Poultice Machine Operator Name Role Phone Mary House PharmD Unavailable [phone] Shahana Hernandez MD Primary Care Provider + Reason for Visit * Reason Onset Date Comments Med Refill 04/12/2025 Encounter Details Date Type Department Care Team (Late st Contact Info) Description 04/12/2025 Refill [facility] [address] [place] [address] Shahana Hernandez MD [address] [place] [address] Social History Tobacco Use Types Packs/Day Years [...] documented as of this encounter Care Teams Poultice Machine Operator Relationship Specialty Start Date End Date Shahana Hernandez MD [address] [place] [address] PCP - General Internal Medicine 10/02/24 Mary House, PharmD [address] [place] [address] Pharmacist Internal Medicine 04/11/23 documented as of this encounter
--- OUTSIDE RECORDS SUMMARY | 2025-10-08 11:42 | XMS_ITS | Encounter Summary ---
Author Organization [employer] Address [address] [facility] [address] [place] [address] Care Team Providers Care Traveling Storekeeper Name Role Phone Mary House PharmD Unavailable [phone] Shahana Hernandez MD Primary Care Provider + Reason for Visit * Reason Onset Date Comments Med Refill 04/12/2025 Encounter Details Date Type Department Care Team (Late st Contact Info) Description 04/12/2025 Refill [facility] [address] [place] [address] Jason Cross MD [address] [place] [address] Essential (primary) hypertension; Acquired hypothyroidism Social History [...] documented as of this encounter Care Teams Traveling Storekeeper Relationship Specialty Start Date End Date Shahana Hernandez MD [address] [place] [address] PCP - General Internal Medicine 10/02/24 Mary House PharmD [address] [place], [place] [id number] Pharmacist Internal Medicine 04/11/23 documented as of this encounter
--- OUTSIDE RECORDS SUMMARY | 2025-10-08 11:42 | XMS_ITS | Encounter Summary ---
Author Organization [employer] Address [address] [facility] [address] [place] [address] Care Team Providers Care Electrolysist Name Role Phone Mary House PharmD Unavailable [phone] Shahana Hernandez MD Primary Care Provider + Reason for Visit * Reason Comments Med Refill Encounter Details Date Type Department Care Team ([facility] st Contact Info) Description 10/06/2025 Refill [facility] [address] [place] [address] Shahana Hernandez MD [address] [place] [address] Social History Tobacco Use Types Packs/Day Years [...] documented as of this encounter Care Teams Electrolysist Relationship Specialty Start Date End Date Shahana Hernandez MD [address] [place] [id number] PCP - General Internal Medicine 10/02/24 Mary House PharmD [address] [place] [address] Pharmacist Internal Medicine 04/11/23 documented as of this encounter
== END 2025-10-08 10:45 | disposition home or self-care (01) ==
LOC: HO.HOS 10:17
PROVIDERS: PCP Internal Medicine; Visit Provider Orthopaedic Surgery
DX: S83.281A Other tear of lateral meniscus, current injury, right knee, initial encounter (principal)
CPT/HCPCS: 99213

== ENCOUNTER → 2025-10-08 10:17 | Outpatient (BNVA) | payer MEDICAID, SELFPAY | PROVIDERS: PCP Internal Medicine; Visit Provider Orthopaedic Surgery | DX: S83.281A Other tear of lateral meniscus, current injury, right knee, initial encounter (principal); X58.XXXA Exposure to other specified factors, initial encounter; Y93.89 Activity, other specified; Y92.89 Other specified places as the place of occurrence of the external cause; Y99.9 Unspecified external cause status | CPT/HCPCS: 99212 ==

== ENCOUNTER 2025-11-01 08:23 | Day surgery (SDC) | payer MEDICAID, SELFPAY ==
[2025-10-16 13:24] VITALS: BMI 35.2
--- NOTE | 2025-10-16 14:47 | HO.ANESPROP2 ---
Documented by User: Basia Dutta NP 10/16/25 14:47 HPI - Anesthesia Eval Consult details Narrative: 55yo F for Right Knee Arthroscopy,with Lateral meniscectomy, 11/01/25 PMFSH Active Problems Active Problems: All Active Problems Tear of lateral meniscus of right knee (Acute) Tear of medial meniscus of right knee (Acute) Past Medical History Medical History Hypothyroidism Hypertension Family History Family history of problems with anesthesia: No Surgical History Surgical History H/O colonoscopy Hx of appendectomy History of Problems with Anesthesia: No Social History Social History Are you a primary pet care associate to a significant other at home: No Do you presently have visiting nurse or other home services: No Alcohol intake: never Patient Tobacco Use Status: Never used Tobacco Use of substances other than those prescribed or required for medical reasons: No Have you been hit, kicked, punched, or otherwise hurt by someone within the past year? If so, by whom?: No Spiritual Healthcare Practices: no [facility] Practices: no Cultural Healthcare Practices: no Are you DNR?: No Advance Directives: No Advance Directives Information Provided: Yes Advance Directives on File: No FDLMP: n/a Current occupational status: employed Current occupation: [employer] Allergies Allergy/AdvReac Type Severity Reaction Status Date / Time No Known Allergies (No Known Allergy Unverified 08/08/25 09:47 Allergies*) Home Medications ?Medication ?Instructions ?Recorded ?Confirmed ?Last Taken ?Type hydrochlorothiazide 12.5 mg tablet 12.5 mg PO DAILY 06/17/22 11/01/25 11/01/25 History levothyroxine 25 mcg tablet 25 mcg PO DAILY 06/17/22 10/15/25 Unknown History Exam Height,Weight and Vital Signs: Height 5 ft 1 in Weight 84.4 kg Assessment and Plan Assessment Anesthesia Assessment: Chart Reviewed Final Anesthetic Review Family History of Problems with Anesthesia: No History of Problems with Anesthesia: No Documented by User: Gurwinder Harkins MD 11/01/25 10:55 PMFSH Past Medical History Medical History Hypothyroidism Hypertension Surgical History Surgical History H/O colonoscopy Hx of appendectomy Social History Social History Are you a primary pet care associate to a significant other at home: No Do you presently have visiting nurse or other home services: No Alcohol intake: never Patient Tobacco Use Status: Never used Tobacco Use of substances other than those prescribed or required for medical reasons: No Have you been hit, kicked, punched, or otherwise hurt by someone within the past year? If so, by whom?: No Spiritual Healthcare Practices: no [facility] Practices: no Cultural Healthcare Practices: no Are you DNR?: No Advance Directives: No Advance Directives Information Provided: Yes Advance Directives on File: No FDLMP: n/a Current occupational status: employed Current occupation: [employer] Allergies Allergy/AdvReac Type Severity Reaction Status Date / Time No Known Allergies (No Known Allergy Unverified 08/08/25 09:47 Allergies*) Home Medications ?Medication ?Instructions ?Recorded ?Confirmed ?Last Taken ?Type hydrochlorothiazide 12.5 mg tablet 12.5 mg PO DAILY 06/17/22 11/01/25 11/01/25 History levothyroxine 25 mcg tablet 25 mcg PO DAILY 06/17/22 10/15/25 Unknown History Exam Exam Date and Time: 11/01/25 Airway Mallampati Class: II TM Dist: >3cm Neck ROM: Full Denture: Upper and Lower Heart: rrr Lungs: ctab vesicular Assessment and Plan Assessment Anesthesia Assessment: Anesthesia Plan Discussed Final Anesthetic Review NPO: Yes ASA Class: II Final Preanesthetic Review: No Changes in Pt Med Stat, Meds/Allgs Chart Reviewed, Consent Obtained/Reviewed and Anes Risks/Benef Reviewed Patient Risk: Low Procedure Risk: Low Anesthetic Plan Anesthetic Plan: GA Disposition: Standard PACU
[2025-11-01 08:35] VITALS: BMI 34.2
[2025-11-01 08:45] VITALS: BP 140/80; PULSE 56; RESP 16; TEMP 36.6; O2SAT 97
[2025-11-01] MEDS: Lactated Ringers 1,000 ML 100 ML IVCONT (08:45)
[2025-11-01 10:20] LABS: UPreg QC Valid YES
[2025-11-01 11:25] VITALS: BP 105/72; PULSE 70; RESP 20; TEMP 36.1; O2SAT 100
[2025-11-01 11:30] VITALS: BP 110/64; PULSE 57; RESP 12; O2SAT 94
--- NOTE | 2025-11-01 11:30 | PM.OP ---
Brief Operative Note Date of Service: 11/01/25 Pre-op diagnosis: Right knee lateral meniscus tear, right knee degenerative joint disease Post-op diagnosis: same Procedure: Right knee arthroscopic partial lateral meniscectomy, right knee arthroscopic chondroplasty of the undersurface of the patella as well as the medial femoral condyle Implants: none Surgeon: Joshua Strickland MD Anesthesia: GLMA Was an Bonding [employer] Composite Fabricator used for this Procedure?: No Estimated blood loss (mL): 10 Pathology: none sent Condition: stable Disposition: PACU
--- NOTE | 2025-11-01 11:32 | W.PM.OPN ---
Operative Note Operative Note Date of Service: 11/01/25 Narrative: After the patient was identified as Vania Perez and her right knee was initialed by myself they were brought to the operating room where general anesthesia was induced by the anesthesiologist in routine fashion. The patient was given 2 g of IV Ancef for infection prophylaxis. A formal time-out was completed. The patient's right lower extremity was prepped and draped in sterile fashion. Marcaine with epinephrine was injected into the planned incision sites as well as their right knee joint. A # 11 scalpel blade was used to make an anterolateral portal 1 cm proximal to the joint line and 1 cm lateral to the patellar tendon. Blunt trocar technique was used into the suprapatellar pouch with the knee in extension. Diagnostic arthroscopy showed multiple bands of thickened plica which would be excised at the end of the procedure. There were no loose bodies or abnormalities found in either the medial or lateral gutters. There were diffuse grades 1 and 2 degenerative changes of the undersurface of the patella as well as grades 1 and 2 degenerative changes of the trochlear groove. The patient's knee was flexed to 45 degrees and a valgus force was placed upon it. The medial compartment was entered. An anteromedial portal was made 1 cm proximal to the joint line and 1 cm medial to the patellar tendon. Probing of the medial meniscus showed no evidence of medial meniscus tearing. There were diffuse grades 1 and 2 degenerative changes of the medial femoral condyle as well as diffuse grade 1 degenerative changes of the medial tibial plateau. The articular surface of the medial femoral condyle was made smooth using the arthroscopic shaver. The articular surface of the medial tibial plateau was already smooth so no chondroplasty was indicated. The patient's knee was then placed into a neutral position. There was no injury to the anterior cruciate ligament. The patient's knee was then placed into the figure of 4 position and the lateral compartment was entered. There were minimal degenerative changes of the lateral femoral condyle and lateral tibial plateau. There was a radial tear of the anterior horn of the lateral meniscus. A partial lateral meniscectomy was performed using the arthroscopic shaver. Following the partial meniscectomy the remainder of the meniscus tissue was stable. The patient's knee was once again brought into extension and the suprapatellar pouch was entered. The arthroscopic shaver and the ArthroCare Wand were used to excise the thickened bands of plica. The undersurface of the patella was then made smooth using the arthroscopic shaver. The articular surface of the trochlear groove was already smooth so no chondroplasty was indicated. The knee joint was irrigated and then drained. All arthroscopic instruments were removed. The 2 portals were closed with 3-0 nylon interrupted suture. The knee joint was injected with Marcaine. Dry sterile dressing and Asher bandages were placed over the patient's knee. The patient was awoken and extubated in the operating room. They were transferred to the recovery room in stable condition.
[2025-11-01 11:35] VITALS: BP 113/73; PULSE 66; RESP 12; O2SAT 93
[2025-11-01 11:40] VITALS: BP 103/70; PULSE 55; RESP 16; O2SAT 93
[2025-11-01 11:55] VITALS: BP 123/75; PULSE 67; RESP 12; O2SAT 93
== END 2025-11-01 12:42 | disposition home or self-care (01) ==
PROVIDERS: PCP Internal Medicine; Visit Provider Orthopaedic Surgery
PROC: (CPT 29870; principal; 2025-11-01 10:30)
DX: M23.241 Derangement of anterior horn of lateral meniscus due to old tear or injury, right knee (principal); M25.561 Pain in right knee; M17.11 Unilateral primary osteoarthritis, right knee; M23.51 Chronic instability of knee, right knee; R26.2 Difficulty in walking, not elsewhere classified; R20.8 Other disturbances of skin sensation; M67.51 Plica syndrome, right knee; Z87.828 Personal history of other (healed) physical injury and trauma; I10 Essential (primary) hypertension; E03.9 Hypothyroidism, unspecified; Z79.1 Long term (current) use of non-steroidal anti-inflammatories (NSAID); Z79.899 Other long term (current) drug therapy
CPT/HCPCS: 29881; 81025; J0131; J0461; J0690; J0696; J1100; J1171; J1885; J2003; J2250; J2405; J2704; J2795; J3010

== ENCOUNTER → 2025-11-01 08:23 | Outpatient (BNV) | payer MEDICAID, SELFPAY | PROVIDERS: PCP Internal Medicine; Visit Provider Orthopaedic Surgery | DX: S83.281A Other tear of lateral meniscus, current injury, right knee, initial encounter (principal) | CPT/HCPCS: 29881 ==